=== PATIENT | male | born 1975 | race Caucasian/White ===

== ENCOUNTER 2022-09-21 08:10 | Outpatient (RCR) | payer OTHER, SELFPAY | END 2023-01-19 23:59 | disposition home or self-care (01) | PROVIDERS: PCP Orthopaedic Surgery; Visit Provider Orthopaedic Surgery | DX: M17.12 Unilateral primary osteoarthritis, left knee (principal); Z96.652 Presence of left artificial knee joint; R26.2 Difficulty in walking, not elsewhere classified; M25.562 Pain in left knee; Z51.89 Encounter for other specified aftercare | CPT/HCPCS: 97110; 97116; 97161 ==

== ENCOUNTER 2022-10-05 09:21 | Day surgery (SDC) | payer OTHER, SELFPAY ==
[2022-10-05] VITALS (20 sets, daily range): BP systolic 100–142; BP diastolic 54–96; PULSE 64–84; RESP 12–18; TEMP 35.9–36.6; O2SAT 94–100; BMI 50.2
[2022-10-05] MEDS: SODIUM CHLORIDE 0.9 % (FLUSH) 10 ML SYRINGE IVF (09:45)
[2022-10-05] MEDS: OXYCODONE (CR) 10 MG TAB.ER.12H PO (09:45)
[2022-10-05] MEDS: ACETAMINOPHEN 500 MG TABLET 1000 MG PO ×3 (09:45→22:20)
[2022-10-05] MEDS: LACTATED RINGERS 1000 ML 1,000 ML 100 ML IV ×2 (09:45→11:58)
[2022-10-05] MEDS: CELECOXIB 200 MG CAPSULE PO (09:45)
[2022-10-05] MEDS: fentaNYL 100 MCG/2 ML inj IVP (10:12)
[2022-10-05] MEDS: MIDAZOLAM HCL 1 MG/ML inj IVP (10:12)
--- NOTE | 2022-10-05 10:24 | SUR.PREOP ---
TIME?OUT:?1010 PT/RN/ATHLETE MANAGER?VERIFICATION?OF?SURGICAL?SITE,?PROCEDURE,?AND?CONSENT OBTAINED?PRIOR?TO?INVASIVE?PROCEDURE.
[2022-10-05] MEDS: CEFAZOLIN 2 GM INJ IVP (10:40)
[2022-10-05] MEDS: TRANEXAMIC ACID 100 MG/ML INJ 1000 MG IV (10:45)
--- NOTE | 2022-10-05 13:14 | CRLHL7_ITS ---
For Patients: As a result of the Cures Act, medical imaging exams and procedure reports are released immediately into your electronic medical record. You may view this report before your referring provider. If you have questions, please contact your health care provider. INDICATION: Postop TECHNIQUE: Two views left knee FINDINGS: Left knee total arthroplasty in satisfactory position with postoperative soft tissue edema and gas. Dictated by Val Gonzalez MD @ 10/05/2022 8:20:08 PM (Electronically Signed)
--- NOTE | 2022-10-05 13:18 | P.ORPRC_ITS ---
Procedure Note Date of procedure: 10/05/22 Procedure: PREOPERATIVE DIAGNOSIS: Left knee osteoarthritis POSTOPERATIVE DIAGNOSIS: Left knee osteoarthritis NAME OF OPERATION: Left total knee arthroplasty SURGEON: Laci Peterson MD TILTING SAW OPERATOR: KIM Gupta ANESTHESIA: Spinal ESTIMATED BLOOD LOSS: 0 mL COMPLICATIONS: None SPECIMENS: None DRAINS: None PREOPERATIVE ANTIBIOTICS: Ancef 3 grams, antibiotic impregnated cement IMPLANTS: 1. J&J Attune # 7 posterior stabilized CRS femur, with a 14 mm x 50 mm cemented stem 2. #6 fixed-bearing CRS tibia, with a 14 mm x 50 mm cemented stem 3. # 7 posterior stabilized, 8 mm fixed-bearing polyethylene 4. 38 patella INDICATIONS: The patient is a 47-year-old with a longstanding history of severe, unrelenting left knee pain secondary to end-stage (grade IV) left knee osteoarthritis. Despite appropriate nonoperative management, including activity modification, anti-inflammatories, [id number] pain medication, bracing, physical therapy, and injections they continue to have pain and disability. Operative intervention was offered. The risks, benefits and expected outcomes were discussed in detail. These included but were not limited to: Infection, bleeding, injury to blood vessel or nerve, venous thromboembolism. All questions were answered to their satisfaction. Use of an assistant professor of spanish was necessary throughout the case for patient positioning and safety, soft tissue retraction, and closure. A modifier 22 should be added the case. Patient's weight of 154 kg with a BMI of 50 kg/meter squared made exposure quite difficult. Additionally, because of his BMI, revision components with stems were required. These factors more than double the time typically required to complete the case. PROCEDURE: Spinal anesthesia was administered. The patient was placed supine on the operating table. The assistant professor of spanish made sure the patient was positioned appropriately. The lower extremity was prepped and draped in the usual sterile fashion. The limb was exsanguinated with the Keon bandage. The pneumatic tourniquet was inflated to 300 mmHg. A standard anterior incision was made with the knee in flexion. Subcutaneous dissection was sharply taken through fascial layer #1. Full-thickness medial and lateral flaps were elevated. The assistant professor of spanish retracted the soft tissues and protected them throughout the case. A standard medial parapatellar approach was made. The patella was everted. The infrapatellar fat pad was preserved. The menisci and cruciate ligaments were sharply d?brided. Marginal osteophytes were d?brided with the rongeur. The drill was used to penetrate the femoral canal. The canal was aspirated and irrigated with pulse lavage. The intramedullary femoral guide was placed for a 5-degree valgus cut, removing 10 mm off the distal femur. The saw was used to make the cut. Whitesides line and the trans epicondylar axis were marked. The femoral sizing guide was pinned onto the distal femur. Three degrees of external rotation nicely parallels the transepicondylar axis. Pins were placed for posterior referencing. The four-in-one cutting guide was pinned onto the distal femur. The anterior, posterior, and chamfer cuts were made. The assistant professor of spanish protected the collateral ligaments. The trial was placed. The box cuts were made. The femoral drill guide was placed and the drills were used x2. The stemmed, boxed trial was placed and was an excellent fit. Attention was then turned to the proximal tibia. The extramedullary tibial guide was placed for a neutral varus/valgus cut with 5 degrees of posterior slope, removing 1 mm based off the medial tibial surface. The assistant professor of spanish protected the collateral ligaments and the neurovascular bundle. The saw was used to make the cut. Trial components were placed. The knee was nicely balanced in both flexion and extension. The trial components were removed. The tray was placed in appropriate rotation, parallel to our tibial cutting pins. It was pinned by the assistant professor of spanish and the drill x2 and the punch were used. The tray was removed. The punch was used again. The stemmed trial tray was placed and was an excellent fit. Attention was then turned to the patella. [place] patellar thickness was 24 mm. The lobster claw resection guide was used with the 9.5 mm zak. The saw was used to make the cut. Drill holes were made by the assistant professor of spanish. The trial was placed and was an excellent fit. Cancellous surfaces were irrigated with pulse lavage and thoroughly dried by the assistant professor of spanish. We cemented the tibial component, then the femoral component. A trial spacer was placed. The knee was brought into full extension. We then cemented the patellar component. Excessive cement was removed. The cement was allowed to harden. Then we impacted the 8 mm polyethylene onto the tibial tray. The knee was taken through a range of motion and was found to be nicely balanced in both flexion and extension. The patella tracks centrally. The assistant professor of spanish did a three minute dilute Betadine solution soak. The assistant professor of spanish irrigated the wound with 3 liters of normal saline via pulse lavage. The assistant professor of spanish reapproximated the extensor mechanism with #1 Vicryl in an interrupted hconox-jw-obzob fashion. The assistant professor of spanish then ran the extensor mechanism with a #1 PDO Stratafix. The assistant professor of spanish closed the subcutaneous tissues with a 3-0 Stratafix and the skin with a running 3-0 Stratafix in a subcuticular fashion. Glue was used to seal the skin. The assistant professor of spanish placed a dry dressing, JULIA stocking, and Polar Care. Sponge and needle counts were correct x2. The patient tolerated the procedure well. There were no apparent complications. They were carefully transferred to the hospital bed and taken to the postanesthesia care unit in satisfactory condition. PLAN: The patient will be mobilized with physical therapy. Aspirin will be used for DVT prophylaxis. They will be discharged to home once medically appropriate.
[2022-10-05] MEDS: HYDROmorphone 0.5 mg/0.5 ml inj IVP ×3 (13:48→17:05)
--- NOTE | 2022-10-05 13:57 | W.ANESCHARGE ---
Anesthesia Charges Start Date/Time Anesthesia Start Date: 10/05/22 Anesthesia Start Time: 10:35 Stop Date/Time Anesthesia Stop Date: 10/05/22 Anesthesia Stop Time: 13:32
[2022-10-05] MEDS: fentaNYL 100 MCG/2 ML inj 50 MCG IVP ×2 (13:58→14:05)
--- NOTE | 2022-10-05 15:00 | P.IMCN_ITS ---
Date of Consult Patient: Other ([facility]) Consult date: 10/05/22 Requesting Physician: Orthopedics ([facility]) Primary Care Provider: Mohit Castaneda MD Consult Narrative Reason for consult: Hypertension Narrative: Eulalio Solomon is a 47 year old male who underwent an elective left total knee arthroplasty today by Dr. Peterson. Postoperatively he has been having a lot of pain and, according to the floor nurse, the PACU nurses thought that maybe the block had already worn off because he was having lot of trouble with pain immediately postoperatively. He has gotten several doses of Dilaudid and oxycodone already. While I was in there he was starting to become more comfortable and rating the pain at around a 6/10; he had just gotten his 2nd dose of Dilaudid about 10 minutes before I walked in. Review of Systems Status of ROS: Reports: 6 or more systems reviewed and unremarkable except as noted in History and below [facility] Medical History (Updated 10/05/22 @ 19:12 by Marquita Smith MD) Elevated liver enzymes ?R74.8 - Abnormal levels of other serum enzymes (ICD-10) Obesity ?E66.9 - Obesity, unspecified (ICD-10) Alcohol dependence with alcohol-induced disorder ?F10.29 - Alcohol dependence with unspecified alcohol-induced disorder (ICD- 10) Hypertension ?I10 - Essential (primary) hypertension (ICD-10) Prediabetes ?R73.03 - Prediabetes (ICD-10) Surgical History (Updated 10/05/22 @ 19:12 by Marquita Smith MD) S/P total knee arthroplasty ?Z96.659 - Presence of unspecified artificial knee joint (ICD-10) S/P arthroscopy of left shoulder (~1991) ?Z98.890 - Other specified postprocedural states (ICD-10) History of appendectomy (~1981) ?Z90.49 - Acquired absence of other specified parts of digestive tract (ICD- 10) History of bilateral carpal tunnel release (~09/14/21) ?Z98.890 - Other specified postprocedural states (ICD-10) S/P hernia repair (~1992) ?Z98.890 - Other specified postprocedural states (ICD-10) ?Z87.19 - Personal history of other diseases of the digestive system (ICD-10) S/P knee surgery (~1990) ?Z98.890 - Other specified postprocedural states (ICD-10) Family History (Updated 10/05/22 @ 14:59 by Marquita Smith MD) Father Sleep apnea Diabetes Obesity Mother Sleep apnea Obesity Maternal Grandfather Stroke Coronary artery disease Diabetes Maternal Grandmother Diabetes High cholesterol Obesity Paternal Grandfather No problems noted. 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 Quit smoking 3 years ago. Smoked on/off for 20 years, just under a pack per day. Denies any other tobacco or vaping. Quit all alcohol 2020. Denies recreational drug use. Has used marijuana in distant past, last time 2009. Highest level of school completed/degree received: Bachelor's degree Smoking Status: Former smoker What tobacco products do you use: cigarettes Smoking packs per day: 1 Smoking cigarettes per day: 20.0 Years smoked: 15 Smoking pack-years: 15.00 Smoking quit date/years: <= 15 years ago Do you use any of these nicotine containing products: None Second hand tobacco smoke exposure: No How often do you have a drink containing alcohol: never How often do you have six or more drinks on one occasion: Never AUDIT-C Alcohol total score: 0 Non-prescribed substance use: denies use Caffeine: Yes (coffee, 5-6 cups/day) service: No Meds Home Medications and Allergies Home Medications Medication Instructions Recorded Confirmed Type acetaminophen 500 mg tablet 500 mg PO Q6H PRN 08/09/22 10/05/22 History (Tylenol Extra Strength) ibuprofen 200 mg tablet 800 mg PO Q8H PRN 08/09/22 10/05/22 History losartan 50 mg-hydrochlorothiazide 1 tab PO DAILY 08/09/22 10/05/22 History 12.5 mg tablet metformin 500 mg tablet,extended 500 mg PO DAILY 08/09/22 10/05/22 History release 24 hr phentermine 37.5 mg capsule 37.5 mg PO QAM 08/09/22 10/05/22 History Allergies Allergy/AdvReac Type Severity Reaction Status Date / Time No Known Drug Allergies Allergy Verified 10/05/22 10:09 Exam Narrative: Exam Narrative: General: No acute distress. Awake alert oriented x3. Obese. HEENT: Normocephalic atraumatic, pupils equally round and reactive to light and accommodation. Oropharynx clear. Mucous membranes are moist. No cervical lymphadenopathy, thyromegaly or carotid bruits. No JVD. Cardiovascular: Regular rate and rhythm. No murmurs, gallops, or rubs. Chest: No increased work of breathing. Clear to auscultation bilaterally. No crackles or wheezes. Abdomen: Bowel sounds present. Soft, nondistended, nontender. No hepatosplenomegaly or masses. Extremities: Left knee bandage is clean, dry, and intact. No edema, no cyanosis or clubbing. Skin: No jaundice, no pallor, no rashes. Const: Vital Signs, click to edit/add: Vital Signs - 24 hr 10/05/22 10:06 10/05/22 10:12 10/05/22 10:15 Temperature 97.7 F Pulse Rate 84 79 84 Respiratory Rate 16 16 16 Blood Pressure 135/87 119/70 115/86 Pulse Oximetry 96 100 99 Oxygen Delivery Me thod Room Air Nasal Cannula Nasal Cannula Oxygen Flow Rate 3 3 10/05/22 10:20 10/05/22 10:30 10/05/22 13:34 Temperature 96.8 F L Pulse Rate 80 80 82 Respiratory Rate 16 16 17 Blood Pressure 123/70 117/70 102/54 L Pulse Oximetry 98 99 96 Oxygen Delivery Me thod Nasal Cannula Nasal Cannula Room Air Oxygen Flow Rate 3 3 10/05/22 13:40 10/05/22 13:45 10/05/22 13:50 Temperature Pulse Rate 65 72 64 Respiratory Rate 16 16 16 Blood Pressure 105/74 113/80 106/68 Pulse Oximetry 99 99 99 Oxygen Delivery Me thod Room Air Oxygen Flow Rate 10/05/22 13:55 10/05/22 14:00 10/05/22 14:05 Temperature Pulse Rate 70 74 71 Respiratory Rate 16 14 12 Blood Pressure 106/72 104/74 112/76 Pulse Oximetry 99 97 97 Oxygen Delivery Me thod Room Air Oxygen Flow Rate 10/05/22 14:10 10/05/22 14:15 10/05/22 14:20 Temperature 96.9 F L Pulse Rate 74 71 68 Respiratory Rate 16 12 12 Blood Pressure 100/56 L 111/83 103/71 Pulse Oximetry 95 94 94 Oxygen Delivery Me thod Room Air Oxygen Flow Rate 3 Assessment and Plan Assessment and plan (1) S/P total knee arthroplasty: Problem comment: - 10/05/22 left, Dr. Peterson - routine postop cares per Ortho - pain is now coming under control, continue current regimen Status: Acute (2) Osteoarthritis of left knee: Status: Chronic (3) Osteoarthritis of right knee: Status: Chronic (4) Hypertension: Problem comment: Hold losartan hydrochlorothiazide tomorrow morning, can give later in the mor [place]ia if blood pressures are elevated, restarted on discharge Status: Chronic (5) Prediabetes: Problem comment: Diabetic diet and continue metformin Status: Chronic (6) Obesity: Status: Chronic Plan VTE prophylaxis with twice a day baby aspirin, Brant's, and SCDs.
[2022-10-05] MEDS: OXYCODONE 5 MG TABLET PO ×3 (15:06→23:35)
--- NOTE | 2022-10-05 19:21 | PC.NURSE ---
Nursing Care Hours [id number] Pt arrived from PACU with pain 5/10 and increasing. Cryocuff on, bandage CDI, bilat pedal pulses present. VSS. Pain meds given per eMAR, pt continued to struggle with getting pain under 5/10. Attempt to transfer to chair for different position, pt did not tolerate. [place] lightheaded when standing and pain reported 10/10. Hospitalist made aware. Second dose of IV pain med allowed enough comfort for pt to order and eat dinner. Void pending. Pt worked on IS. Moved JULIA stockings up from G to H d/t socks rolling and pinching. Post op VS followed per hospital policy.
[2022-10-05] MEDS: SENNOSIDES 1 TAB TABLET 2 TAB PO (20:23)
[2022-10-05] MEDS: ASPIRIN 81 MG TABLET EC PO (20:24)
--- NOTE | 2022-10-05 23:29 | PC.NURSE ---
[id number]: A&O, pleasant and cooperative. VSS w/ sats >90% on RA. A1 w/ walker and gait belt. Voiding appropriately. rating pain /10, PRN oxycodone given w/ stated relief. Dressing to knee c/d/i. CMS intact. Cryocuff to site. tolerating regular diet.
[2022-10-06 03:00] VITALS: BP 144/90; PULSE 83; RESP 18; TEMP 36.4; O2SAT 97
[2022-10-06] MEDS: ACETAMINOPHEN 500 MG TABLET 1000 MG PO ×2 (03:40→10:39)
--- NOTE | 2022-10-06 07:05 | PC.NURSE ---
Shift note: Pt is doing well. Ambulate with A1, walker and GB. Alert and oriented. Pt tolerated regular diet very well. Pain level has been rated between 5 and 7 and managed with PRN oxycodone and Tylenol. Dressing appears clean and dry. Vitally sable.
[2022-10-06 07:20] LABS: Basophils Absolute Auto 0.01 K/uL (0.00-0.30); Basophils Percent Auto 0.1 % (0.0-3.0); Hematocrit 37.6 % (37.0-53.0); Hemoglobin* 12.5 gm/dL (13.5-17.5); Immature Granulocytes Abs Auto 0.01 K/uL (0.00-0.30); Immature Granulocytes Pct Auto 0.1 %; Mean Corpuscular HGB Conc 33 gm/dL (32-36); Mean Corpuscular Hemoglobin 28 pg (26-34); Mean Corpuscular Volume 85 fL (80-100); Monocytes Percent Auto 7.5 % (0.0-11.0); Neutrophils Percent Auto 81.3 % (42.0-72.0); Platelet Count* 192 K/uL (140-440); RDW Coefficient of Variation % 12.7 % (11.5-15.5); Red Blood Count 4.43 m/uL (4.30-5.90); White Blood Count* 9.57 K/uL (4.50-11.00)
[2022-10-06 07:26] LABS: Potassium* 4.1 mmol/L (3.6-5.1); Sodium* 137 mmol/L (135-149)
[2022-10-06 07:28] LABS: Slide Review Reflex No
[2022-10-06 07:29] LABS: Creatinine* 0.8 mg/dL (0.5-1.5); Est. Creatinine Clearance* 112.92; Estimated Glomerular Filt Rate 109 ml/min
[2022-10-06 07:30] LABS: Blood Urea Nitrogen* 17 mg/dL (5-24)
[2022-10-06 07:40] VITALS: BP 128/86; PULSE 81; RESP 18; TEMP 36.6; O2SAT 100
[2022-10-06 07:45] VITALS: PULSE 81; PULSE 83; RESP 18; O2SAT 100
[2022-10-06] MEDS: OXYCODONE 5 MG TABLET PO ×2 (07:45→10:38)
[2022-10-06 07:50] LABS: INR 1.05 (0.91-1.10); Prothrombin Time 14.4 Seconds
[2022-10-06] MEDS: SENNOSIDES 1 TAB TABLET 2 TAB PO (08:34)
[2022-10-06] MEDS: METFORMIN ER 500 MG PO (08:35)
[2022-10-06] MEDS: ASPIRIN 81 MG TABLET EC PO (08:35)
--- NOTE | 2022-10-06 09:35 | PM.ORPN ---
Subjective Subjective Time Seen by Provider: 07:45 Date Seen: 10/06/22 Principal diagnosis: Status post left knee replacement 10/05/2022 Interval history: Eulalio is comfortable in the recliner currently. He states after surgery yesterday he had a period of quite significant pain that calm down with Dilaudid and oxycodone. He plans to discharge to home today. His daughter is with him in the room this morning. Ortho Exam Narrative Exam Narrative: Alert and oriented x3. Patient is in no acute distress. Converses without labored breathing. Hearing is grossly intact. Ambulates with a walker. Examination of the left lower extremity shows the dressing is intact. No erythema or warmth or sign of infection. Mild edema is present. Due to the large knee, effusion is not palpable. Bilateral calves are soft and nontender. CMS is intact left lower extremity. Const Vital Signs, click to edit/add: Vital Signs - 24 hr 10/05/22 10:06 10/05/22 10:12 10/05/22 10:15 Temperature 97.7 F Pulse Rate 84 79 84 Pulse Rate [Left Dorsalis Pedis] Pulse Rate [Left Pulse Oximeter] Respiratory Rate 16 16 16 Blood Pressure 135/87 119/70 115/86 Blood Pressure [Right Arm] Pulse Oximetry 96 100 99 Oxygen Delivery Method Room Air Nasal Cannula Nasal Cannula Oxygen Flow Rate 3 3 10/05/22 10:20 10/05/22 10:30 10/05/22 13:34 Temperature 96.8 F L Pulse Rate 80 80 82 Pulse Rate [Left Dorsalis Pedis] Pulse Rate [Left Pulse Oximeter] Respiratory Rate 16 16 17 Blood Pressure 123/70 117/70 102/54 L Blood Pressure [Right Arm] Pulse Oximetry 98 99 96 Oxygen Delivery Method Nasal Cannula Nasal Cannula Room Air Oxygen Flow Rate 3 3 10/05/22 13:40 10/05/22 13:45 10/05/22 13:45 Temperature Pulse Rate 65 72 82 Pulse Rate [Left Dorsalis Pedis] Pulse Rate [Left Pulse Oximeter] Respiratory Rate 16 16 15 Blood Pressure 105/74 113/80 Blood Pressure [Right Arm] 128/94 H Pulse Oximetry 99 99 Oxygen Delivery Method Room Air Oxygen Flow Rate 10/05/22 13:45 10/05/22 13:50 10/05/22 13:55 Temperature 96.6 F L Pulse Rate 64 70 Pulse Rate [Left Dorsalis Pedis] Pulse Rate [Left Pulse Oximeter] 66 Respiratory Rate 15 16 16 Blood Pressure 106/68 106/72 Blood Pressure [Right Arm] 126/92 H Pulse Oximetry 94 99 99 Oxygen Delivery Method Room Air Room Air Oxygen Flow Rate 10/05/22 14:00 10/05/22 14:00 10/05/22 14:05 Temperature Pulse Rate 74 71 Pulse Rate [Left Dorsalis Pedis] Pulse Rate [Left Pulse Oximeter] 65 Respiratory Rate 14 15 12 Blood Pressure 104/74 112/76 Blood Pressure [Right Arm] 138/89 Pulse Oximetry 97 94 97 Oxygen Delivery Method Room Air Room Air Oxygen Flow Rate 10/05/22 14:10 10/05/22 14:15 10/05/22 14:15 Temperature Pulse Rate 74 71 Pulse Rate [Left Dorsalis Pedis] Pulse Rate [Left Pulse Oximeter] 65 Respiratory Rate 16 12 16 Blood Pressure 100/56 L 111/83 Blood Pressure [Right Arm] 138/89 Pulse Oximetry 95 94 94 Oxygen Delivery Method Room Air Oxygen Flow Rate 10/05/22 14:20 10/05/22 14:30 10/05/22 15:00 Temperature 96.9 F L Pulse Rate 68 Pulse Rate [Left Dorsalis Pedis] Pulse Rate [Left Pulse Oximeter] 72 Respiratory Rate 12 16 Blood Pressure 103/71 Blood Pressure [Right Arm] 128/96 H Pulse Oximetry 94 96 96 Oxygen Delivery Method Room Air Room Air Oxygen Flow Rate 3 10/05/22 19:00 10/05/22 19:26 10/05/22 23:00 Temperature 97.4 F L Pulse Rate Pulse Rate [Left Dorsalis Pedis] Pulse Rate [Left Pulse Oximeter] 72 Respiratory Rate 18 Blood Pressure Blood Pressure [Right Arm] 142/81 H Pulse Oximetry 98 98 97 Oxygen Delivery Method Room Air Oxygen Flow Rate 10/05/22 23:00 10/06/22 03:00 10/06/22 03:00 Temperature 97.8 F 97.6 F Pulse Rate Pulse Rate [Left Dorsalis Pedis] 81 83 Pulse Rate [Left Pulse Oximeter] Respiratory Rate 18 18 Blood Pressure Blood Pressure [Right Arm] 136/79 144/90 H Pulse Oximetry 97 97 97 Oxygen Delivery Method Room Air Room Air Oxygen Flow Rate 10/06/22 07:40 10/06/22 07:45 10/06/22 07:45 Temperature 97.8 F Pulse Rate Pulse Rate [Left Dorsalis Pedis] 83 Pulse Rate [Left Pulse Oximeter] 81 81 Respiratory Rate 18 18 Blood Pressure Blood Pressure [Right Arm] 128/86 Pulse Oximetry 100 100 Oxygen Delivery Method Room Air Oxygen Flow Rate Assessment and Plan Assessment and plan (1) S/P total knee arthroplasty: Problem details: - 10/05/22 left, Dr. Peterson - routine postop cares per Ortho - pain is now coming under control, continue current regimen Status: Acute Assessment and Plan: Plan for discharge is today to home if they meet discharge criteria. DVT prophylaxis includes aspirin 81 mg twice daily x1 month, Brant stockings x1 month may remove for 1 hr per day, frequent ambulation Remove dressing in 1 week. Observe wound and phone Orthopedics with any questions or concerns Return to clinic in 1 week for a wound check Return to clinic in 6 weeks with surgeon Minimize narcotic use. Wean off and discontinue soon as possible. Activities as tolerated. No strenuous activity. Outpatient physical therapy as scheduled. Ice and elevate the operative extremity. No restriction on ice. (2) Osteoarthritis of left knee: Status: Chronic (3) Osteoarthritis of right knee: Status: Chronic (4) Hypertension: Problem details: Hold losartan hydrochlorothiazide tomorrow morning, can give later in the morning if blood pressures are elevated, restarted on discharge Status: Chronic (5) Prediabetes: Problem details: Diabetic diet and continue metformin Status: Chronic (6) Obesity: Status: Chronic
--- NOTE | 2022-10-06 09:47 | PC.SOCIAL ---
Discharge Plan: Met with patient, Eulalio and daughter. Daughter is home from college and planning to care for dad for two weeks. Hi other children are available to help if needed. No other questions or concerns. Social work to follow as needed.
--- NOTE | 2022-10-06 11:53 | PC.NURSE ---
discharge. pt has been very pleasant, rehan 5-10/07 he is getting po pain meds. he is drinking, voiding and eating. dressing is C/D/I and cryo cuff to the knee. IS to 2500. he is up with 1 assist walker and GB. went over discharge packet with pt and daughter. went over medications, appointments, education and instructions. pt went over and signed personal belonging sheet. he got a w/c ride out. SL was d/c intact.
--- NOTE | 2022-10-14 09:42 | P.NB_ITS ---
Nerve Block Nerve Block Time Seen by Provider: 10:10 Date Seen: 10/05/22 Type of block requested by surgeon for post-operative analgesia: adductor canal Side: left Time out performed: Yes Verification of patient name: Yes Verification of date of : Yes Site marking: site marked Name of person performing procedure: diana Continuous monitoring Was continuous monitoring of O2 sat, B/P, commercial reporter, recorded every 15 minutes?: Yes Procedure Checklist: needles Ultrasound guided. Images saved: Yes Medications given in 5ml increments after negative aspiration: Ropivicaine %: 0.5 mL: 20 Needle gauge: 20 Decadron (mg): 10 Precedex (mcg): 25 Patient tolerated procedure well: Yes Block Charges Block Charge (with Pro Fee): Femoral Nerve Use of Ultrasound Machine for Block: Yes- US Guidance/pain block
--- NOTE | 2022-10-14 09:44 | W.PM.NB ---
Nerve Block Nerve Block Time Seen by Provider: 10:10 Date Seen: 10/05/22 Type of block requested by surgeon for post-operative analgesia: geniculars Side: left Time out performed: Yes Verification of patient name: Yes Verification of date of : Yes Site marking: site marked Name of person performing procedure: diana Continuous monitoring Was continuous monitoring of O2 sat, B/P, clinical research monitor, recorded every 15 minutes?: Yes Procedure Checklist: sterile prep and needles Ultrasound guided. Images saved: No Medications given in 5ml increments after negative aspiration: Ropivicaine %: 0.5 mL: 12 Needle gauge: 25 Patient tolerated procedure well: Yes Block Charges Block Charge (with Pro Fee): Genicular Nerve Block Use of Ultrasound Machine for Block: No
== END 2022-10-06 11:00 | disposition home or self-care (01) ==
LOC: OR 09:23 → MEDSURG 09:25
PROVIDERS: PCP Family Medicine; Visit Provider Orthopaedic Surgery
PROC: (CPT 27447; principal; 2022-10-05 11:15)
DX: M17.0 Bilateral primary osteoarthritis of knee (principal); G89.18 Other acute postprocedural pain; I10 Essential (primary) hypertension; E66.9 Obesity, unspecified; Z68.43 Body mass index [BMI] 50.0-59.9, adult; R73.03 Prediabetes
CPT/HCPCS: 27447; 1402; 36415; 64447; 64454; 73560; 76942; 82565; 84132; 84295; 84520; 85025; 85610; 97116; 97161; 97165; 97530; 97535; A9270; C1776; J0690; J1100; J1170; J2250; J2405; J2704; J2795; J3010; J7120

== ENCOUNTER 2022-10-25 08:32 | Outpatient (CLI) | payer OTHER, SELFPAY ==
--- NOTE | 2022-10-25 11:15 | US_ITS ---
Patient: ANN-MARIE LEON Facility:?[facility] Patient ID:?[id number] Site Patient ID:?[id number]. Site :?[id number] Study:?US-Extremity Left Dr. Hartley to read. MSK-10/25/2022 5:04:09 PM Ordering Physician:MADDIE LOVE Final Report: Indication: s/p left knee surgery and fall. eval quadriceps tendon Technique: Real-time grayscale imaging of the left knee performed. Comparison: Radiographs 10/05/2022 Findings: Postoperative changes of total knee arthroplasty are present. The patellar tendon is intact. A small joint effusion is noted within the suprapatellar recess. The quadriceps tendon is also intact. There is a large fluid collection within the prepatellar soft tissues containing areas of reticular echotexture compatible with blood products. This fluid collection is located just beneath the skin and superficial to the patella and quadriceps tendon. The collection measures approximately 17.8 cm in craniocaudad dimension and 2.1 x 2.3 cm in transverse dimensions. Impression: Subcutaneous prepatellar hematoma measuring 17.8 x 2.1 x 2.3 cm. Intact quadriceps tendon and patellar tendon. Dictated by Fredrick Hartley MD @ 10/26/2022 7:14:27 AM Signed by:?Fredrick Hartley MD @10/26/2022 7:14:27 AM (Electronic Signature)
== END 2022-10-25 08:33 | disposition home or self-care (01) ==
LOC: US 10-26 08:32
PROVIDERS: PCP Family Medicine; Visit Provider Physician Assistant
DX: Z96.652 Presence of left artificial knee joint (principal); M25.462 Effusion, left knee; S80.02XA Contusion of left knee, initial encounter
CPT/HCPCS: 76882

== ENCOUNTER 2023-01-25 05:53 | Day surgery (SDC) | payer OTHER, SELFPAY ==
[2023-01-25] VITALS (26 sets, daily range): BP systolic 86–143; BP diastolic 57–109; PULSE 54–112; RESP 12–20; TEMP 35.8–36.7; O2SAT 92–100; BMI 50.6
[2023-01-25] MEDS: ACETAMINOPHEN 500 MG TABLET 1000 MG PO ×3 (06:27→17:35)
[2023-01-25] MEDS: OXYCODONE (CR) 10 MG TAB.ER.12H PO (06:27)
[2023-01-25] MEDS: CELECOXIB 200 MG CAPSULE PO (06:27)
[2023-01-25] MEDS: LACTATED RINGERS 1000 ML 1,000 ML 100 ML IV (06:40)
[2023-01-25] MEDS: SODIUM CHLORIDE 0.9 % (FLUSH) 10 ML SYRINGE IVF (06:40)
[2023-01-25] MEDS: fentaNYL 100 MCG/2 ML inj IVP (07:00)
[2023-01-25] MEDS: MIDAZOLAM HCL 1 MG/ML inj IVP (07:00)
--- NOTE | 2023-01-25 07:11 | SUR.PREOP ---
Anesthesia deferred blood glucose, patient does not test glucose levels at home, patient says he is not diabetic just takes Metformin.
--- NOTE | 2023-01-25 07:11 | SUR.PREOP ---
TIME?OUT: 0700? PT/RN/MDA?VERIFICATION?OF?SURGICAL?SITE,?PROCEDURE,?AND?CONSENT OBTAINED?PRIOR?TO?INVASIVE?PROCEDURE.
[2023-01-25] MEDS: CEFAZOLIN 1 GM inj 3 GM IVP (07:47)
--- NOTE | 2023-01-25 08:01 | P.NB_ITS ---
Nerve Block Nerve Block Time Seen by Provider: 07:05 Date Seen: 01/25/23 Type of block requested by surgeon for post-operative analgesia: geniculars Side: right Time out performed: Yes Verification of patient name: Yes Verification of date of : Yes Site marking: site marked Name of person performing procedure: Boy Continuous monitoring Was continuous monitoring of O2 sat, B/P, cardiac rehabilitation specialist, recorded every 15 minutes?: Yes Procedure Checklist: sterile prep, needles and gloves Medications given in 5ml increments after negative aspiration: Ropivicaine %: 0.5 mL: 9 Needle gauge: 25 Patient tolerated procedure well: Yes Block Charges Block Charge (with Pro Fee): Genicular Nerve Block Use of Ultrasound Machine for Block: No
--- NOTE | 2023-01-25 08:01 | W.PM.NB ---
Nerve Block Nerve Block Time Seen by Provider: 07:05 Date Seen: 01/25/23 Type of block requested by surgeon for post-operative analgesia: adductor canal Side: right Time out performed: Yes Verification of patient name: Yes Verification of date of : Yes Site marking: site marked Name of person performing procedure: Boy Continuous monitoring Was continuous monitoring of O2 sat, B/P, phototypesetting equipment monitor, recorded every 15 minutes?: Yes Procedure Checklist: sterile prep, needles and gloves Ultrasound guided. Images saved: Yes Medications given in 5ml increments after negative aspiration: Ropivicaine %: 0.5 mL: 20 Needle gauge: 20 Decadron (mg): 10 Precedex (mcg): 25 Patient tolerated procedure well: Yes Additional comments: Needle noted adjacent to nerve Block Charges Block Charge (with Pro Fee): Femoral Nerve Use of Ultrasound Machine for Block: Yes- US Guidance/pain block
--- NOTE | 2023-01-25 08:01 | W.ANESCHARGE ---
Anesthesia Charges Start Date/Time Anesthesia Start Date: 01/25/23 Stop Date/Time Anesthesia Stop Date: 01/25/23
--- NOTE | 2023-01-25 09:16 | CRLHL7_ITS ---
For Patients: As a result of the Cures Act, medical imaging exams and procedure reports are released immediately into your electronic medical record. You may view this report before your referring provider. If you have questions, please contact your health care provider. INDICATION: Postoperative knee replacement. TECHNIQUE: Two postoperative images of the right knee. FINDINGS: Right total knee arthroplasty. Patellar resurfacing. The components are adequately aligned and well seated. Air within the joint space and soft tissues related to the surgery. IMPRESSION: Postsurgical change from a right total knee arthroplasty. The components are adequately aligned and well seated. Dictated by Riaz Zabala MD @ 01/26/2023 11:17:19 AM (Electronically Signed)
--- NOTE | 2023-01-25 09:21 | PM.ORPRC ---
Procedure Note Date of procedure: 01/25/23 Procedure: PREOPERATIVE DIAGNOSIS: Right knee osteoarthritis POSTOPERATIVE DIAGNOSIS: Right knee osteoarthritis NAME OF OPERATION: Right total knee arthroplasty SURGEON: Laci Peterson MD COMMERCIAL MAKEUP ARTIST: Veronica Esteban PA-C ANESTHESIA: Spinal ESTIMATED BLOOD LOSS: 0 mL COMPLICATIONS: None SPECIMENS: None DRAINS: None PREOPERATIVE ANTIBIOTICS: Ancef 3 grams, antibiotic impregnated cement IMPLANTS: 1. J&J Attune revision CRS #6 posterior stabilized femur, with a 14 mm x 50 mm cemented stem 2. #6 revision CRS fixed-bearing tibia, with a 14 mm x 50 mm cemented stem 3. #6 posterior stabilized, 8 mm fixed-bearing constrained polyethylene 4. 38 patella INDICATIONS: The patient is a 48-year-old with a longstanding history of severe, unrelenting right knee pain secondary to end-stage (grade IV) right knee osteoarthritis. Despite appropriate nonoperative management, including activity modification, anti-inflammatories, [id number] pain medication, bracing, physical therapy, and injections they continue to have pain and disability. Operative intervention was offered. The risks, benefits and expected outcomes were discussed in detail. These included but were not limited to: Infection, bleeding, injury to blood vessel or nerve, venous thromboembolism. All questions were answered to their satisfaction. Use of an housekeeper and laundry assistant was necessary throughout the case for patient positioning and safety, soft tissue retraction, and closure. A modifier 22 should be added to this case. The patient's weight of 155 kg with a BMI of 50.6 kg/meter squared made exposure quite difficult. Additionally, because of these factors stemmed and constrained components were used to try and prevent early aseptic loosening. This added more than 50% of the time typically required to complete the case. PROCEDURE: Spinal anesthesia was administered. The patient was placed supine on the operating table. The housekeeper and laundry assistant made sure the patient was positioned appropriately. The lower extremity was prepped and draped in the usual sterile fashion. The limb was exsanguinated with the [place] bandage. The pneumatic tourniquet was inflated to 300 mmHg. A standard anterior incision was made with the knee in flexion. Subcutaneous dissection was sharply taken through fascial layer #1. Full-thickness medial and lateral flaps were elevated. The housekeeper and laundry assistant retracted the soft tissues and protected them throughout the case. A standard medial parapatellar approach was made. The patella was everted. The infrapatellar fat pad was preserved. The menisci and cruciate ligaments were sharply d?brided. Marginal osteophytes were d?brided with the rongeur. The drill was used to penetrate the femoral canal. The canal was aspirated and irrigated with pulse lavage. The intramedullary femoral guide was placed for a 5-degree valgus cut, removing 10 mm off the distal femur. The saw was used to make the cut. Whitesides line and the trans epicondylar axis were marked. The femoral sizing guide was pinned onto the distal femur. Three degrees of external rotation nicely parallels the transepicondylar axis. Pins were placed for posterior referencing. The four-in-one cutting guide was pinned onto the distal femur. The anterior, posterior, and chamfer cuts were made. The housekeeper and laundry assistant protected the collateral ligaments. The revision trial femoral component was pinned onto the distal femur. The box cuts were made. The drill x2 were used. The stemmed, box trial was placed and was an excellent fit. Attention was then turned to the proximal tibia. The extramedullary tibial guide was placed for a neutral varus/valgus cut with 5 degrees of posterior slope, removing 1 mm based off the medial tibial surface. The housekeeper and laundry assistant protected the collateral ligaments and the neurovascular bundle. The saw was used to make the cut. Trial components were placed. The knee was nicely balanced in both flexion and extension. The trial components were removed. The tray was placed in appropriate rotation, parallel to our tibial cutting pins. It was pinned by the housekeeper and laundry assistant and the drill x2 was used. The stemmed tibial trial was placed. The punch was used. The tray was removed. The punch was used again. Attention was then turned to the patella. [place] patellar thickness was 23 mm. The lobster claw resection guide was used with the 9.5 mm zak. The saw was used to make the cut. Drill holes were made by the housekeeper and laundry assistant. The trial was placed and was an excellent fit. Cancellous surfaces were irrigated with pulse lavage and thoroughly dried by the housekeeper and laundry assistant. We cemented the tibial component, then the femoral component. We impacted the 8 mm polyethylene onto the tibial tray. The knee was brought into full extension. We then cemented the patellar component. Excessive cement was removed. The cement was allowed to harden. The knee was taken through a range of motion and was found to be nicely balanced in both flexion and extension. The patella tracks centrally. The housekeeper and laundry assistant did a three minute dilute Betadine solution soak. The housekeeper and laundry assistant irrigated the wound with 3 liters of normal saline via pulse lavage. The housekeeper and laundry assistant reapproximated the extensor mechanism with #1 Vicryl in an interrupted ohckjz-au-mfugl fashion. The housekeeper and laundry assistant then ran the extensor mechanism with a #1 PDO Stratafix. The housekeeper and laundry assistant closed the subcutaneous tissues with a 3-0 Stratafix and the skin with a running 3-0 Stratafix in a subcuticular fashion. Glue was used to seal the skin. The housekeeper and laundry assistant placed a dry dressing, JULIA stocking, and Polar Care. Sponge and needle counts were correct x2. The patient tolerated the procedure well. There were no apparent complications. They were carefully transferred to the hospital bed and taken to the postanesthesia care unit in satisfactory condition. PLAN: The patient will be mobilized with physical therapy. Aspirin will be used for DVT prophylaxis. They will be discharged to home once medically appropriate.
--- NOTE | 2023-01-25 10:04 | W.ANESCHARGE ---
Anesthesia Charges Start Date/Time Anesthesia Start Date: 01/25/23 Anesthesia Start Time: 07:32 Stop Date/Time Anesthesia Stop Date: 01/25/23 Anesthesia Stop Time: 10:22
--- NOTE | 2023-01-25 10:27 | W.ANESCHARGE ---
Anesthesia Charges Start Date/Time Anesthesia Start Date: 01/25/23 Anesthesia Start Time: 07:32 Stop Date/Time Anesthesia Stop Date: 01/25/23 Anesthesia Stop Time: 10:22
[2023-01-25] MEDS: fentaNYL 100 MCG/2 ML inj 50 MCG IVP ×2 (10:44→11:09)
--- NOTE | 2023-01-25 11:12 | SUR.PHASEI ---
patient met discharge criteria per anesthsia
[2023-01-25] MEDS: HYDROmorphone 0.5 mg/0.5 ml inj IVP ×4 (11:58→15:56)
[2023-01-25] MEDS: OXYCODONE 5 MG TABLET PO ×6 (12:00→22:46)
[2023-01-25] MEDS: hydrOXYzine pamoate 25 MG CAPSULE PO ×2 (14:31→20:23)
--- NOTE | 2023-01-25 15:26 | REH.PT ---
Attempted Eval & treat X 2 this afternoon. Pt having 9/10 R Knee pain and poor quad control at both attempts. Will reattempt tomorrow am.
--- NOTE | 2023-01-25 15:49 | PC.SOCIAL ---
Discharge planning: Met with pt to discuss discharge planning after right knee replacement surgery. Pt states that he plans to go home with adult child that can help him, while also completing out-patient physical therapy. No other manager social responsibility follow-up is needed at this time.
--- NOTE | 2023-01-25 19:08 | PM.IMHP1 ---
Hospitalist- H&P: HPI History of Present Illness Time Seen by Provider: 19:00 Date Seen: 01/25/23 Chief complaint: Right total knee Narrative: Eulalio Solomon is a 48 year old male who underwent an elective right total knee arthroplasty today by Dr. Peterson. He said he had more pain coming out of surgery this time and that he remembers it going so well post op last time, but also notes that his pain is getting better. I reviewed my note from last time and he did have a lot of post op pain in the immediate post op period then, too. Review of Systems Status of ROS: Reports: 10 or more systems reviewed and unremarkable except as noted in History and below [facility] Medical History Alcohol dependence ?F10.20 - Alcohol dependence, uncomplicated (ICD-10) Fatty liver ?K76.0 - Fatty (change of) liver, not elsewhere classified (ICD-10) Elevated liver enzymes ?R74.8 - Abnormal levels of other serum enzymes (ICD-10) Obesity ?E66.9 - Obesity, unspecified (ICD-10) Alcohol dependence with alcohol-induced disorder ?F10.29 - Alcohol dependence with unspecified alcohol-induced disorder (ICD-10) Hypertension ?I10 - Essential (primary) hypertension (ICD-10) Prediabetes ?R73.03 - Prediabetes (ICD-10) Surgical History S/P total knee arthroplasty (10/05/22) ?Z96.659 - Presence of unspecified artificial knee joint (ICD-10) S/P arthroscopy of left shoulder (~1991) ?Z98.890 - Other specified postprocedural states (ICD-10) History of appendectomy (~1981) ?Z90.49 - Acquired absence of other specified parts of digestive tract (ICD-10) History of bilateral carpal tunnel release (~09/14/21) ?Z98.890 - Other specified postprocedural states (ICD-10) S/P hernia repair (~1992) ?Z98.890 - Other specified postprocedural states (ICD-10) ?Z87.19 - Personal history of other diseases of the digestive system (ICD-10) S/P knee surgery (~1990) ?Z98.890 - Other specified postprocedural states (ICD-10) Family History Father Sleep apnea Diabetes Obesity Mother Sleep apnea Obesity Maternal Grandfather Stroke Coronary artery disease Diabetes Maternal Grandmother Diabetes High cholesterol Obesity Paternal Grandfather No problems noted. 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 Quit smoking 3 years ago. Smoked on/off for 20 years, just under a pack per day. Denies any other tobacco or vaping. Quit all alcohol 2020. Denies recreational drug use. Has used marijuana in distant past, last time 2009. What is your current living situation?: I presently have a place to live Problems where you live: no known problems In the past 12 months, utilities in danger of being shut off: no In past 12 months, lack of transportation kept you from medical appts, meetings, work, or getting things needed for daily living: no In the past 12 mos, have been you worried that your food would run out before you had money to buy more?: never true In the past 12 mos, the food you bought just didn't last and you didn't have money to buy more?: never true Highest level of school completed/degree received: some college, no degree Smoking Status: Former smoker What tobacco products do you use: cigarettes Smoking packs per day: 0.5 Smoking cigarettes per day: 10.0 Years smoked: 15 Smoking pack-years: 7.50 Smoking quit date/years: <= 15 years ago Do you use any of these nicotine containing products: None Second hand tobacco smoke exposure: No How often do you have a drink containing alcohol: never How often do you have six or more drinks on one occasion: Never AUDIT-C Alcohol total score: 0 Non-prescribed substance use: denies use Caffeine: Yes How often does anyone, including family, friends and others, physically hurt you: never How often does anyone, including family, friends and others, insult or talk down to you: never How often does anyone, including family, friends and others, threaten you with harm: never How often does anyone, including family, friends and others, scream or curse at you: never service: No Meds Home Medications and Allergies Home Medications Medication Instructions Recorded Confirmed Type losartan 50 mg-hydrochlorothiazide 1 tab PO DAILY 08/09/22 01/25/23 History 12.5 mg tablet metformin 500 mg tablet,extended 500 mg PO DAILY 08/09/22 01/25/23 History release 24 hr phentermine 37.5 mg capsule 37.5 mg PO QAM 08/09/22 01/25/23 History topiramate 25 mg tablet (Topamax) 50 mg PO HS 01/25/23 01/25/23 History Allergies Allergy/AdvReac Type Severity Reaction Status Date / Time No Known Drug Allergies Allergy Verified 01/25/23 06:14 Exam Narrative: Exam Narrative: General: No acute distress. Awake alert oriented x3. Obese. HEENT: Normocephalic atraumatic, pupils pinpoint, equal. Oropharynx clear. Mucous membranes are moist. No JVD. Cardiovascular: Regular rate and rhythm. No murmurs, gallops, or rubs. Chest: No increased work of breathing. Clear to auscultation bilaterally. No crackles or wheezes. Abdomen: Bowel sounds present. Soft, nondistended, nontender. No hepatosplenomegaly or masses. Extremities: Right knee bandage is clean, dry, and intact. Well healed surgical scar on left knee. MELO wraps on both lower legs. No edema, no cyanosis or clubbing. Skin: No jaundice, no pallor, no rashes. Const: Vital Signs, click to edit/add: Vital Signs - 24 hr 01/25/23 06:46 01/25/23 07:01 01/25/23 07:15 Temperature 98.0 F Pulse Rate 73 77 76 Respiratory Rate 16 16 16 Blood Pressure 133/86 132/83 120/78 Pulse Oximetry 96 98 97 Oxygen Delivery Me thod Room Air Nasal Cannula Nasal Cannula Oxygen Flow Rate 2 2 01/25/23 10:19 01/25/23 10:25 01/25/23 10:30 Temperature 97.6 F 97.6 F 97.6 F Pulse Rate 84 67 69 Respiratory Rate 13 12 18 Blood Pressure 94/63 105/62 93/59 L Pulse Oximetry 98 97 97 Oxygen Delivery Me thod Room Air Room Air Room Air Oxygen Flow Rate 01/25/23 10:35 01/25/23 10:40 01/25/23 10:45 Temperature 97.6 F 97.6 F 97.6 F Pulse Rate 60 66 57 L Respiratory Rate 14 13 12 Blood Pressure 100/63 99/58 L 93/64 Pulse Oximetry 97 98 97 Oxygen Delivery Me thod Room Air Room Air Room Air Oxygen Flow Rate 01/25/23 10:50 01/25/23 10:55 01/25/23 11:00 Temperature 97.6 F 97.6 F 97.2 F L Pulse Rate 54 L 71 65 Respiratory Rate 12 16 16 Blood Pressure 86/70 L 92/58 L 89/57 L Pulse Oximetry 98 98 100 Oxygen Delivery Me thod Room Air Room Air Room Air Oxygen Flow Rate 01/25/23 11:14 Temperature 97.2 F L Pulse Rate 71 Respiratory Rate 16 Blood Pressure 110/68 Pulse Oximetry 97 Oxygen Delivery Me thod Room Air Oxygen Flow Rate
--- NOTE | 2023-01-25 20:31 | PC.NURSE ---
Nursing Care Hours: [id number] Pt arrived from PACU around 1130 with pain 6/10 that quickly escalated to 10/10. Unable to manage pain per eMAR orders. Surgeon notified and Vistaril added. Since Vistaril administration, pain started trending down but still reported 7/10. Pt unable to get up with PT. Did not tolerate having leg elevated on 2 pillows. Encouraged to order dinner and pt agreed to attempt to get up to void after dinner. SL d/t sufficient fluid intake. VSS. Bandage CDI, pedal pulses present.
--- NOTE | 2023-01-25 20:44 | PM.IMCN1 ---
Date of Consult Consult date: 01/25/23 Requesting Physician: Orthopedics Primary Care Provider: Mohit Castaneda MD Consult Narrative Reason for consult: Hypertension, pre diabetes Narrative: Eulalio Solomon is a 48 year old male who underwent an elective right total knee arthroplasty today by Dr. Peterson. He said he had more pain coming out of surgery this time and that he remembers it going so well post op last time, but also notes that his pain is getting better. I reviewed my note from last time and he did have a lot of post op pain in the immediate post op period then, too. Review of Systems Status of ROS: Reports: 10 or more systems reviewed and unremarkable except as noted in History and below [facility] Medical History (Updated 01/25/23 @ 20:49 by Marquita Smith MD) Hematoma ?T14.8XXA - Other injury of unspecified body region, initial encounter (ICD-10) Alcohol dependence ?F10.20 - Alcohol dependence, uncomplicated (ICD-10) Fatty liver ?K76.0 - Fatty (change of) liver, not elsewhere classified (ICD-10) Elevated liver enzymes ?R74.8 - Abnormal levels of other serum enzymes (ICD-10) Obesity ?E66.9 - Obesity, unspecified (ICD-10) Alcohol dependence with alcohol-induced disorder ?F10.29 - Alcohol dependence with unspecified alcohol-induced disorder (ICD-10) Hypertension ?I10 - Essential (primary) hypertension (ICD-10) Prediabetes ?R73.03 - Prediabetes (ICD-10) Surgical History (Updated 01/25/23 @ 20:48 by Marquita Smith MD) S/P total knee arthroplasty ?Z96.659 - Presence of unspecified artificial knee joint (ICD-10) S/P total knee arthroplasty (10/05/22) ?Z96.659 - Presence of unspecified artificial knee joint (ICD-10) S/P arthroscopy of left shoulder (~1991) ?Z98.890 - Other specified postprocedural states (ICD-10) History of appendectomy (~1981) ?Z90.49 - Acquired absence of other specified parts of digestive tract (ICD-10) History of bilateral carpal tunnel release (~09/14/21) ?Z98.890 - Other specified postprocedural states (ICD-10) S/P hernia repair (~1992) ?Z98.890 - Other specified postprocedural states (ICD-10) ?Z87.19 - Personal history of other diseases of the digestive system (ICD-10) S/P knee surgery (~1990) ?Z98.890 - Other specified postprocedural states (ICD-10) Family History Father Sleep apnea Diabetes Obesity Mother Sleep apnea Obesity Maternal Grandfather Stroke Coronary artery disease Diabetes Maternal Grandmother Diabetes High cholesterol Obesity Paternal Grandfather No problems noted. 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 Quit smoking 3 years ago. Smoked on/off for 20 years, just under a pack per day. Denies any other tobacco or vaping. Quit all alcohol 2020. Denies recreational drug use. Has used marijuana in distant past, last time 2009. What is your current living situation?: I presently have a place to live Problems where you live: no known problems In the past 12 months, utilities in danger of being shut off: no In past 12 months, lack of transportation kept you from medical appts, meetings, work, or getting things needed for daily living: no In the past 12 mos, have been you worried that your food would run out before you had money to buy more?: never true In the past 12 mos, the food you bought just didn't last and you didn't have money to buy more?: never true Highest level of school completed/degree received: some college, no degree Smoking Status: Former smoker What tobacco products do you use: cigarettes Smoking packs per day: 0.5 Smoking cigarettes per day: 10.0 Years smoked: 15 Smoking pack-years: 7.50 Smoking quit date/years: <= 15 years ago Do you use any of these nicotine containing products: None Second hand tobacco smoke exposure: No How often do you have a drink containing alcohol: never How often do you have six or more drinks on one occasion: Never AUDIT-C Alcohol total score: 0 Non-prescribed substance use: denies use Caffeine: Yes How often does anyone, including family, friends and others, physically hurt you: never How often does anyone, including family, friends and others, insult or talk down to you: never How often does anyone, including family, friends and others, threaten you with harm: never How often does anyone, including family, friends and others, scream or curse at you: never service: No Meds Home Medications and Allergies Home Medications Medication Instructions Recorded Confirmed Type losartan 50 mg-hydrochlorothiazide 1 tab PO DAILY 08/09/22 01/25/23 History 12.5 mg tablet metformin 500 mg tablet,extended 500 mg PO DAILY 08/09/22 01/25/23 History release 24 hr phentermine 37.5 mg capsule 37.5 mg PO QAM 08/09/22 01/25/23 History topiramate 25 mg tablet (Topamax) 50 mg PO HS 01/25/23 01/25/23 History Allergies Allergy/AdvReac Type Severity Reaction Status Date / Time No Known Drug Allergies Allergy Verified 01/25/23 06:14 Exam Narrative: Exam Narrative: General: No acute distress. Awake alert oriented x3. Obese. HEENT: Normocephalic atraumatic, pupils pinpoint, equal. Oropharynx clear. Mucous membranes are moist. No JVD. Cardiovascular: Regular rate and rhythm. No murmurs, gallops, or rubs. Chest: No increased work of breathing. Clear to auscultation bilaterally. No crackles or wheezes. Abdomen: Bowel sounds present. Soft, nondistended, nontender. No hepatosplenomegaly or masses. Extremities: Right knee bandage is clean, dry, and intact. Well healed surgical scar on left knee. MELO wraps on both lower legs. No edema, no cyanosis or clubbing. Skin: No jaundice, no pallor, no rashes. Const: Vital Signs, click to edit/add: Vital Signs - 24 hr 01/25/23 06:46 01/25/23 07:01 01/25/23 07:15 Temperature 98.0 F Pulse Rate 73 77 76 Pulse Rate [Left P ulse Oximeter] Respiratory Rate 16 16 16 Blood Pressure 133/86 132/83 120/78 Blood Pressure [Ri ght Arm] Pulse Oximetry 96 98 97 Oxygen Delivery Me thod Room Air Nasal Cannula Nasal Cannula Oxygen Flow Rate 2 2 01/25/23 10:19 01/25/23 10:25 01/25/23 10:30 Temperature 97.6 F 97.6 F 97.6 F Pulse Rate 84 67 69 Pulse Rate [Left P ulse Oximeter] Respiratory Rate 13 12 18 Blood Pressure 94/63 105/62 93/59 L Blood Pressure [Ri ght Arm] Pulse Oximetry 98 97 97 Oxygen Delivery Me thod Room Air Room Air Room Air Oxygen Flow Rate 01/25/23 10:35 01/25/23 10:40 01/25/23 10:45 Temperature 97.6 F 97.6 F 97.6 F Pulse Rate 60 66 57 L Pulse Rate [Left P ulse Oximeter] Respiratory Rate 14 13 12 Blood Pressure 100/63 99/58 L 93/64 Blood Pressure [Ri ght Arm] Pulse Oximetry 97 98 97 Oxygen Delivery Me thod Room Air Room Air Room Air Oxygen Flow Rate 01/25/23 10:50 01/25/23 10:55 01/25/23 11:00 Temperature 97.6 F 97.6 F 97.2 F L Pulse Rate 54 L 71 65 Pulse Rate [Left P ulse Oximeter] Respiratory Rate 12 16 16 Blood Pressure 86/70 L 92/58 L 89/57 L Blood Pressure [Ri ght Arm] Pulse Oximetry 98 98 100 Oxygen Delivery Me thod Room Air Room Air Room Air Oxygen Flow Rate 01/25/23 11:14 01/25/23 11:30 01/25/23 11:45 Temperature 97.2 F L 96.5 F L Pulse Rate 71 112 H Pulse Rate [Left P ulse Oximeter] 72 Respiratory Rate 16 12 Blood Pressure 110/68 Blood Pressure [Ri ght Arm] 111/80 117/70 Pulse Oximetry 97 97 Oxygen Delivery Me thod Room Air Room Air Room Air Oxygen Flow Rate 01/25/23 12:00 01/25/23 12:15 01/25/23 12:30 Temperature Pulse Rate Pulse Rate [Left P ulse Oximeter] 81 76 96 Respiratory Rate 12 Blood Pressure Blood Pressure [Ri ght Arm] 126/73 119/72 126/73 Pulse Oximetry 92 97 96 Oxygen Delivery Me thod Room Air Room Air Room Air Oxygen Flow Rate 01/25/23 13:00 01/25/23 13:30 01/25/23 14:30 Temperature 96.8 F L Pulse Rate Pulse Rate [Left P ulse Oximeter] 99 70 88 Respiratory Rate 12 14 14 Blood Pressure Blood Pressure [Ri ght Arm] 128/96 H 134/98 H 140/109 H Pulse Oximetry 99 99 96 Oxygen Delivery Me thod Room Air Room Air Room Air Oxygen Flow Rate 01/25/23 15:30 01/25/23 16:30 01/25/23 17:30 Temperature 96.5 F L Pulse Rate Pulse Rate [Left P ulse Oximeter] 81 92 87 Respiratory Rate 12 12 14 Blood Pressure Blood Pressure [Ri ght Arm] 130/82 128/79 135/79 Pulse Oximetry 98 96 94 Oxygen Delivery Me thod Room Air Room Air Room Air Oxygen Flow Rate Assessment and Plan Assessment and plan (1) S/P total knee arthroplasty: Problem comment: - 01/25/23 [address]Dr. Peterson - doing well. Continue routine postop cares. - VTE prophylaxis with twice a day low-dose aspirin Status: Acute (2) Osteoarthritis of right knee: Status: Chronic (3) Hypertension: Problem comment: Hold losartan hydrochlorothiazide tomorrow morning, can give later in the morning if blood pressures are elevated, restarted on discharge Status: Chronic (4) Prediabetes: Problem comment: Diabetic diet, continue metformin Status: Chronic (5) Obesity: Status: Chronic
[2023-01-25] MEDS: ASPIRIN 81 MG TABLET EC PO (22:46)
[2023-01-25] MEDS: SENNOSIDES 1 TAB TABLET 2 TAB PO (22:46)
[2023-01-26] MEDS: OXYCODONE 5 MG TABLET PO ×3 (01:21→09:01)
[2023-01-26] MEDS: ACETAMINOPHEN 500 MG TABLET 1000 MG PO ×2 (01:21→07:39)
[2023-01-26 03:00] VITALS: BP 141/81; PULSE 84; RESP 16; TEMP 36.4; O2SAT 98
[2023-01-26 06:34] LABS: Hematocrit 38.4 % (37.0-53.0); Hemoglobin* 12.3 gm/dL (13.5-17.5); Immature Granulocytes Abs Auto 0.01 K/uL (0.00-0.30); Immature Granulocytes Pct Auto 0.1 %; Mean Corpuscular HGB Conc 32 gm/dL (32-36); Mean Corpuscular Hemoglobin 28 pg (26-34); Mean Corpuscular Volume 86 fL (80-100); Monocytes Percent Auto 7.7 % (0.0-11.0); Neutrophils Percent Auto 80.2 % (42.0-72.0); Platelet Count* 216 K/uL (140-440); RDW Coefficient of Variation % 12.8 % (11.5-15.5); Red Blood Count 4.48 m/uL (4.30-5.90); White Blood Count* 8.95 K/uL (4.50-11.00)
--- NOTE | 2023-01-26 06:35 | PC.NURSE ---
End of shift [id number] ? Pt alert, oriented x 4, and cooperative during shift. Pt up to bathroom and ambulating in halls with walker, gait belt, and standby assist. Pt tolerating RA, regular diet. Continent of bladder, void x 3 during shift. Dressing CDI, VSS, afebrile. Cryocuff in place on R knee and MELO wraps in place on bilateral LE. RN provided education regarding pain medication at pt request with verbalized understanding. Pt reports pain at 6/10 which is tolerable per pt with PRN interventions in APR. Pt observed to sleep, appears to be resting comfortably at end of shift. ?
[2023-01-26 06:56] LABS: Potassium* 4.3 mmol/L (3.6-5.1); Sodium* 139 mmol/L (135-149)
[2023-01-26 06:59] LABS: Blood Urea Nitrogen* 18 mg/dL (5-24); Creatinine* 0.8 mg/dL (0.5-1.5); Estimated Glomerular Filt Rate 108 ml/min
[2023-01-26 07:02] LABS: INR 1.03 (0.91-1.10); Prothrombin Time 14.1 Seconds
[2023-01-26 07:05] LABS: Slide Review Reflex No
[2023-01-26 07:44] VITALS: BP 144/86; PULSE 86; RESP 22; TEMP 36.6; O2SAT 98
--- NOTE | 2023-01-26 08:58 | P.ORPN_ITS ---
Subjective Subjective Time Seen by Provider: 07:50 Date Seen: 01/26/23 Principal diagnosis: Status post right total knee arthroplasty Interval history: Patient had pain upon arriving at [facility] postoperatively a yesterday. He states he got some sleep off and on last night. He is comfortable currently in his bed. He plans to discharge to home. He feels this knee is more painful than the left knee was post surgery in September. He would like something further for pain control. Ortho Exam Narrative Exam Narrative: Alert and oriented x3. Patient is in no acute distress. Converses without labored breathing. Hearing is grossly intact. Ambulates with a walker. Examination of the right knee shows the dressing is intact. Minimal soft tissue edema. No erythema or warmth or sign of infection. CMS intact right lower extremity. Quad strength 5/5. Not able to straight leg raise. Const Vital Signs, click to edit/add: Vital Signs - 24 hr 01/25/23 10:19 01/25/23 10:25 01/25/23 10:30 Temperature 97.6 F 97.6 F 97.6 F Pulse Rate 84 67 69 Pulse Rate [Left Pulse Oximeter] Respiratory Rate 13 12 18 Blood Pressure 94/63 105/62 93/59 L Blood Pressure [Right Arm] Pulse Oximetry 98 97 97 Oxygen Delivery Method Room Air Room Air Room Air 01/25/23 10:35 01/25/23 10:40 01/25/23 10:45 Temperature 97.6 F 97.6 F 97.6 F Pulse Rate 60 66 57 L Pulse Rate [Left Pulse Oximeter] Respiratory Rate 14 13 12 Blood Pressure 100/63 99/58 L 93/64 Blood Pressure [Right Arm] Pulse Oximetry 97 98 97 Oxygen Delivery Method Room Air Room Air Room Air 01/25/23 10:50 01/25/23 10:55 01/25/23 11:00 Temperature 97.6 F 97.6 F 97.2 F L Pulse Rate 54 L 71 65 Pulse Rate [Left Pulse Oximeter] Respiratory Rate 12 16 16 Blood Pressure 86/70 L 92/58 L 89/57 L Blood Pressure [Right Arm] Pulse Oximetry 98 98 100 Oxygen Delivery Method Room Air Room Air Room Air 01/25/23 11:14 01/25/23 11:30 01/25/23 11:45 Temperature 97.2 F L 96.5 F L Pulse Rate 71 112 H Pulse Rate [Left Pulse Oximeter] 72 Respiratory Rate 16 12 Blood Pressure 110/68 Blood Pressure [Right Arm] 111/80 117/70 Pulse Oximetry 97 97 Oxygen Delivery Method Room Air Room Air Room Air 01/25/23 12:00 01/25/23 12:15 01/25/23 12:30 Temperature Pulse Rate Pulse Rate [Left Pulse Oximeter] 81 76 96 Respiratory Rate 12 Blood Pressure Blood Pressure [Right Arm] 126/73 119/72 126/73 Pulse Oximetry 92 97 96 Oxygen Delivery Method Room Air Room Air Room Air 01/25/23 13:00 01/25/23 13:30 01/25/23 14:30 Temperature 96.8 F L Pulse Rate Pulse Rate [Left Pulse Oximeter] 99 70 88 Respiratory Rate 12 14 14 Blood Pressure Blood Pressure [Right Arm] 128/96 H 134/98 H 140/109 H Pulse Oximetry 99 99 96 Oxygen Delivery Method Room Air Room Air Room Air 01/25/23 15:30 01/25/23 16:30 01/25/23 17:30 Temperature 96.5 F L Pulse Rate Pulse Rate [Left Pulse Oximeter] 81 92 87 Respiratory Rate 12 12 14 Blood Pressure Blood Pressure [Right Arm] 130/82 128/79 135/79 Pulse Oximetry 98 96 94 Oxygen Delivery Method Room Air Room Air Room Air 01/25/23 19:00 01/25/23 23:00 01/26/23 03:00 Temperature 96.7 F L 97.2 F L 97.5 F L Pulse Rate Pulse Rate [Left Pulse Oximeter] 96 89 84 Respiratory Rate 20 20 16 Blood Pressure Blood Pressure [Right Arm] 143/78 H 133/76 141/81 H Pulse Oximetry 95 98 98 Oxygen Delivery Method Room Air Room Air Room Air 01/26/23 07:44 Temperature 97.8 F Pulse Rate Pulse Rate [Left Pulse Oximeter] 86 Respiratory Rate 22 Blood Pressure Blood Pressure [Right Arm] 144/86 H Pulse Oximetry 98 Oxygen Delivery Method Nasal Cannula Assessment and Plan Assessment and plan (1) Status post right knee replacement: Problem details: 01/25/2023 Nicholas Status: Acute Assessment and Plan: Plan for discharge is today to home if they meet discharge criteria. DVT prophylaxis includes aspirin 81 mg twice daily x1 month, Brant stockings x1 month may remove for 1 hr per day, frequent ambulation Remove dressing in 1 week. Observe wound and phone Orthopedics with any questions or concerns Return to clinic in 1 week for a wound check Return to clinic in 6 weeks with surgeon Minimize narcotic use. Wean off and discontinue soon as possible. Activities as tolerated. No strenuous activity. Outpatient physical therapy as scheduled. Ice and elevate the operative extremity. No restriction on ice. I have added Vistaril and Celebrex to his discharge medications.
[2023-01-26] MEDS: ASPIRIN 81 MG TABLET EC PO (09:01)
[2023-01-26] MEDS: METFORMIN ER 500 MG PO (09:03)
[2023-01-26] MEDS: SENNOSIDES 1 TAB TABLET 2 TAB PO (09:03)
--- NOTE | 2023-01-26 11:33 | PC.NURSE ---
shift note: pt up sba/walker with steady/slow gait. LS clr bilat.pt using IS indept. rt knee drsg c/d/i. slight swelling around knee. cap refill and PP + bilat feet. Pt using acewraps for compression. cryo cuff and belongings sent with pt at dc. IV dc'd intact lt hand
== END 2023-01-26 11:00 | disposition home or self-care (01) ==
LOC: OR 05:53 → MEDSURG 05:55
PROVIDERS: PCP Family Medicine; Visit Provider Orthopaedic Surgery
PROC: (CPT 27447; principal; 2023-01-25 07:15)
DX: M17.11 Unilateral primary osteoarthritis, right knee (principal); G89.18 Other acute postprocedural pain; I10 Essential (primary) hypertension; R73.03 Prediabetes; E66.9 Obesity, unspecified; F10.29 Alcohol dependence with unspecified alcohol-induced disorder; Z68.43 Body mass index [BMI] 50.0-59.9, adult; Z87.891 Personal history of nicotine dependence
CPT/HCPCS: 27447; 01402; 36415; 64447; 64454; 73560; 76942; 82565; 84132; 84295; 84520; 85025; 85610; 97110; 97116; 97161; 97165; 97535; A9270; C1776; J0690; J1100; J1170; J2250; J2405; J2704; J2795; J3010; J3490; J7120

== ENCOUNTER 2023-11-10 06:08 | Day surgery (SDC) | payer OTHER, SELFPAY ==
[2023-11-10] VITALS (16 sets, daily range): BP systolic 106–132; BP diastolic 60–107; PULSE 72–98; RESP 10–16; TEMP 36.3–36.6; O2SAT 95–100; BMI 53.1
--- OUTSIDE RECORDS SUMMARY | 2023-11-10 06:11 | XMS_ITS | Encounter Summary ---
[facility] Organization [facility] Address [address] [place] [address] Care Team Providers Care Study Coordinator Name Role Phone Mohit Castaneda MD Primary Care Provider + [phone] Reason for Visit * Reason Comments Refill metFORMIN XR (GLUCOP ANY XR) 500 MG 24 hour release tablet [Pharmacy Med Name: METFORMIN ER 500MG 24HR TABS] Encounter Details Date Type Department Care Team (Late st Contact Info) Description 10/25/2023 Refill [facility] [id number] [place] [id number] [place] [address] [place] [address] Refill (metFORMIN XR (GLUCOPHAGE XR) 500 MG 24 hour release tablet [Pharmacy Med Name: METFORMIN ER 500MG 24HR TABS]) Social History Tobacco Use Types Packs/Day Years Used Date Smoking Tobacco: Former Cigarettes 1 20 Smokeless Tobacco: Never Alcohol Use Standard Drinks/Week Comments Not Currently 0 (1 standard drink = 0.6 oz pur e alcohol) PHQ-2 Answer Date Recorded PHQ-2 Score 0 09/21/2022 Sex and Gender Information Value Date Recorded Sex Assigned at Not on file Gender Identity Not on file Sexual Orientation Not on file documented as of this encounter Nursing Notes * Radha Thornton RN - 10/26/2023 11:07 AM CDT Further Assistance Needed on Refill from Clinician RN reviewed. Patient due for Lab(s). Review pended order for accuracy and sign if appropriate, Clinician to order lab(s) and document ifpatient is due for lab only visit or office visit and lab, and Route to Front Line to schedule appointment Requested Prescriptions Pending Prescriptions Disp Refills metFORMIN XR (GLUCOPHAGE XR) 500 MG 24 hour release tablet [Pharmacy Med Name: METFORMIN ER 500MG 24HR TABS] 90 Tablet 0 Sig: TAKE 1 TABLET(500 MG) BY MOUTH EVERY EVENING WITH A MEAL documented in this encounter Plan of Treatment Not on file documented as of this encounter Visit Diagnoses Not on filedocumented in this encounter Care Teams Study Coordinator Relationship Specialty [place] [address] [place] [address] PCP - General Family Practice 07/14/22 documented as of this encounter
--- OUTSIDE RECORDS SUMMARY | 2023-11-10 06:11 | XMS_ITS | Encounter Summary ---
Author Organization [facility] Address [address] [place] [address] Care Team Providers Care Display Decorator Name Role Phone Jennifer Alfaro PA-C Primary Care Provi corinna Jennifer Alfaro PA-C Unavailable + [phone] Laurie Reyes Ra, APRN CONNIE SCRATCHER Unavailable [phone] Artur Bernal MD Unavailable +- [phone] Mohit Castaneda MD Primary Care Provider [phone] Encounter Details Date Type Department Care Team (Late st Contact Info) Description 01/24/2019 MyC Medical Advice [facility] [address] [place] [address] Kaya Aggarwal Social History Tobacco Use Types Packs/Day Years Used Date Smoking Tobacco: Former Cigarettes Q uit: 03/31/2001 Smokeless Tobacco: Never Alcohol Use Standard Drinks/Week Comments Yes 0 (1 standard drink = 0.6 oz pur e alcohol) 5-6/ week PHQ-2 Answer Date Recorded PHQ-2 Score 1 03/07/2018 Sex and Gender Information Value Date Recorded Sex Assigned at Male 01/10/2021 6:32 PM [employer] ADJUST[employer] Gender Identity Male 01/10/2021 6:32 PM [employer]ILY [employer] ADJUSTER Sexual Orientation Straight 01/10/2021 6: 32 PM BODILY INJURY ADJUSTER documented as of this encounter Plan of Treatment Not on file documented as of this encounter Visit Diagnoses Not on filedocumented in this encounter Care Teams Display Decorator Relationship Specialty Start Date End Date Jennifer Alfaro PA-C PCP - General Physician Paramedic Rn 06/24/15 08/24/21 [place] [address] [place] [address] PCP - General 08/25/21 Jennifer Alfaro PA-C [facility] [address] [place] [address] Assigned PCP 03/26/18 03/24/19 Laurie Reyes Ra, GAMBLING SUPERVISOR [facility] [address] [place] [address] Assigned PCP 03/25/19 03/29/20 Artur Bernal MD [address] [place] [address] Assigned PCP 08/03/20 03/28/21 documented as of this encounter
--- OUTSIDE RECORDS SUMMARY | 2023-11-10 06:11 | XMS_ITS | Encounter Summary ---
[facility] Address [address] [place] [address] Care Team Providers Care Ice Cream Man Name Role Phone Mohit Menon MD Primary Care Provider + [phone] Reason for Visit * Reason Comments Refill metFORMIN XR (GLUCOP ANY XR) 500 MG 24 hour release tablet [Pharmacy Med Name: METFORMIN ER 500MG 24HR TABS] Encounter Details Date Type Department Care Team (Late st Contact Info) Description 07/27/2023 Refill [facility] [id number] [place] [id number] [place] [address] [place] [address] Refill (metFORMIN XR (GLUCOPHAGE XR) 500 MG [...] Nursing Notes * Radha Thornton RN - 07/29/2023 3:03 PM CDT Further Assistance Needed on Refill from Clinician RN reviewed. Patient due for Lab(s). Medication has been refilled for 90 day supply per standing order. Clinician to order lab(s) and document if patient is due for lab only visit or office visit and laband Route to Front Line to schedule appointment Requested Prescriptions Pending Prescriptions Disp Refills metFORMIN XR (GLUCOPHAGE XR) 500 MG 24 hour release tablet [Pharmacy Med Name: METFORMIN ER 500MG 24HR TABS] 90 Tablet 0 Sig: TAKE 1 TABLET(500 MG) BY MOUTH EVERY EVENING WITH A MEAL * Denilson Darnell Xrwcomm - 07/27/2023 5:46 AM CDT metFORMIN XR (GLUCOPHAGE XR) 500 MG 24 hour release tablet [Pharmacy Med Name: METFORMIN ER 500MG 24HR TABS] Metformin -> Refill x 3 months (until due for a(n) HBA1C check) Last qualifying visit: 01/11/2023 (with MOHIT MENON) Next scheduled visit: None Last ordered by MOHIT MENON: 10/20/2022 (280 days ago) QTY: 90, Refills: 3, Sig: take 1 tablet(500 mg) by mouth every evening with a meal (unchanged) Cr: 0.99 mg/dL on 01/11/2023 HBA1C: 5.8 % on 09/21/2022 [facility] Embedded Refills, Reference: [id number], 07/27/2023 5:46:47 AM CDT, Pool: Refill Centralized Services - Primary Care ([id number]) * Denilson Darnell - 07/27/2023 5:46 AM CDT The following lab order(s) may be associated with the following Patient Result Comment (Entered by Mohit Menon MD at 09/26/2022 10:36 AM): HGB A1C Dear BrentResults - Prediabetes [facility]: As recommended by the [place] [employer], we use information about your health to estimate your risk for a heart attack or stroke. Your risk in the next 10 years is 3%. The information we used to estimate your risk is: Your age 47, sex, blood pressure of 118/80 mm Hg, use of blood pressure lowering medication, total cholesterol of 190 mg/dl, HDL (good cholesterol) of 35 mg/dl, no diagnosis of diabetes, no tobacco or nicotine use. 10 year risk of cardiac or stroke event is low at 3%Cholesterol is acceptable Remaining labs are acceptableSushant MD Tonya 09/26/2022, 10:35 AM * Denilson Darnell - 07/27/2023 5:46 AM CDT The following lab order(s) may be associated with the following Patient Result Comment (Entered by Mohit Menon MD at 01/13/2023 8:44 AM): BASIC METABOLIC PANEL Dear BrentResults - Kidney electrolytes normalMild anemiaOtherwise labs acceptableSushant MD Tonya 01/13/2023, 7:44 AM documented in this encounter Plan of Treatment Not on file documented as of this encounter Visit Diagnoses Not on filedocumented in this encounter Care Teams Ice Cream Man Relationship Specialty [place] [address] [place] [address] PCP - General Family Practice 07/14/22 documented as of this encounter
--- OUTSIDE RECORDS SUMMARY | 2023-11-10 06:11 | XMS_ITS | Encounter Summary ---
Author Organization [facility] Address [address] [place] [address] Care Team Providers Care Lead Janitor Name Role Phone Mohit Castaneda MD Primary Care Provider [phone] Encounter Details Date Type Department Care Team (Latest Contact Info) Description 07/19/1994 Orders Only [facility] [place], [place] Social History Tobacco Use Types Packs/Day Years Used Date Smoking Tobacco: Never Assessed Sex and Gender Information Value Date Recorded Sex Assigned at Not on file Gender Identity Not on file Sexual Orientation Not on file documented as of this encounter Plan of Treatment Not on file documented as of this encounter Visit Diagnoses Not on filedocumented in this encounter Care Teams Lead Janitor Relationship Specialty [place] [address] [place] [address] PCP - General Family Practice 07/14/22 documented as of this encounter
--- OUTSIDE RECORDS SUMMARY | 2023-11-10 06:11 | XMS_ITS | Encounter Summary ---
Author Organization [facility] Address [address] [place] [address] Care Team Providers Care Athletic Monitor Name Role Phone Mohit Castaneda MD Primary Care Provider [phone] Reason for Visit * Reason Comments PRE-OP EXAM Encounter Details Date Type Department Care Team (Late st Contact Info) Description 11/08/2023 2:30 PM CDT Pre-Op Visit [facility] [address] [place] [address] [place] [address] [place] [address] Preop general physical exam (Primary Dx); Chronic pain of right knee; Prediabetes Social History Tobacco Use Types Packs/Day Years Used Date Smoking Tobacco: Former Cigarettes 1 20 Q uit: 10/29/1994 Smokeless Tobacco: Never Tobacco Cessation:Counseling Given: Not Answered Comments:on and off social smoker; less than a pack a day over many years. Alcohol Use Standard Drinks/Week Comments Not Currently 0 (1 standard drink = 0.6 oz pur e alcohol) have not drink in years PHQ-2 Answer Date Recorded PHQ-2 Score 0 09/21/2022 Sex and Gender Information Value Date Recorded Sex Assigned at Not on file Gender Identity Not on file Sexual Orientation Not on file documented as of this encounter Last Filed Vital Signs Vital Sign Reading Time Taken Comments Blood Pressure 122/79 11/08/2023 2:40 PM CDT Pulse 85 11/08/2023 2:40 PM CDT Temperature - - Respiratory Rate - - Oxygen Saturation - - Inhaled Oxygen Concentration - - Weight 163.3 kg (360 lb) 11/08/2023 2:40 PM CDT Height 177 cm (5' 9.69) 11/08/2023 2:40 PM CDT Body Mass Index 52.12 11/08/2023 2:40 PM CDT documented in this encounter Patient Instructions * Patient Instructions* Mohit Castaneda MD - 11/08/2023 2:30 PM CDT losartan-hydrochlorothiazide (HYZAAR) 50-12.5 MG tablet [[id number]] - Do not take on morning of procedure. metFORMIN XR (GLUCOPHAGE XR) 500 MG 24 hour release tablet [[id number]] - Do not take within 24 hours of procedure. Follow your individualized medication recommendations as described above. In addition, please stop all [id number] medications including aspirin, ibuprofen (Advil, Motrin), naproxen (Aleve, Naprosyn), herbal remedies and supplements one week prior to procedure unless directed otherwise by your care team. You may continue to take acetaminophen (Tylenol) up to the dayof your procedure. Normal exam You may proceed for surgery It's been a pleasure seeing you today. Mohit Castaneda MD 11/08/2023, 3:06 PM Continue all other medications as currently taking. Let your care team know if you have questions. On the day of your procedure, do not wear any hair product including hair sprays and gels and avoidusing body sprays and deodorants/antiperspirants. Bring with you to the site of the procedure: Any oral appliances or CPAP equipment related to sleep apnea Any other health-related equipment or devices you use daily documented in this encounter Plan of Treatment Scheduled Orders Name Type Priority Associated Diagnoses Orde r Schedule Hgb A1C Lab Routine Prediabetes Expected: 11/08/2023, Expires: documented as of this encounter Results * (ABNORMAL) BMP (11/08/2023 2:56 PM CDT) Sodium 139 136 - 145 mmol/L 11/08/2023 7:02 PM T [facility] Potassium 3.9 3.5 - 5.1 mmol/L 11/08/2023 7:02 PM T [facility] Chloride 103 98 - 109 mmol/L 11/08/2023 7:02 PM T [facility] CO2 28 20 - 29 mmol/L 11/08/2023 7:02 PM T [facility] Anion Gap 8 6 - 16 mmol/L 11/08/2023 7:02 PM T [facility] Calcium 9.4 8.4 - 10.4 mg/dL 11/08/2023 7:02 PM [facility] BUN 19 7 - 26 mg/dL 11/08/2023 7:02 PM T [facility] Creatinine 0.94 0.73 - 1.18 mg/dL 11/08/2023 7:02 PM T [facility] Glucose 118(H) 70 - 100 mg/dL 11/08/2023 7:02 PM [facility] Comment:The given reference range is for the fasting state. Non-fasting reference range for glucose is 70 - 180 mg/dL. GFR, Estimated >60 >60 mL/min/1. 73m2 11/08/2023 7:02 PM T [facility] Hours Fasting 0.1 8 - 12 Hours 11/08/2023 7:02 PM [facility] Blood Venipuncture / Unknown 11/08/2023 2:56 PM CDT 11/08/2023 2:56 PM T Mohit Castaneda MD LAB_1 [facility] [address] * (ABNORMAL) Hgb A1C (11/08/2023 2:56 PM CDT) Hemoglobin A1C 5.8(H) <=5.6 % 11/08/2023 7:28 PM CDT [facility] Estimated Average Glucose (Calc) 120 < 117 mg/dL 11/08/2023 7:28 PM CDT [facility] Comment:Estimated average gl ucose (eAG) converts A1c into glucose units (mg/dL) and estimates average glucose over the past approximately 3 months. The eAG reference interval (<117 mg/dL) corresponds to an A1c of <5.7%. Blood Venipuncture / Unknown 11/08/2023 2:56 PM CDT 11/08/2023 2:56 PM CDT Narrative [facility] - 11/08/2023 7:28 PM CDT For patients not previously diagnosed with diabetes: 5.7-6.4%: Increased risk for diabetes 6.5% and greater: Diagnostic for diabetes For patients diagnosed with diabetes: <8.0%: Goal of therapy for ages 18-75 Clinicians may recommend a higher or lower goal for specific individuals. Mohit Castaneda MD LAB_1 [facility] [address] documented in this encounter Visit Diagnoses Diagnosis Preop general physical exam- Primary Other specified pre-operative examination Chronic pain of right knee Prediabetes Other abnormal glucose documented in this encounter Care Teams Athletic Monitor Relationship Specialty [place] [address] [place] [address] PCP - General Family Practice 07/14/22 documented as of this encounter
--- OUTSIDE RECORDS SUMMARY | 2023-11-10 06:11 | XMS_ITS | Clinical Summary ---
Author Organization [place] Address [address] [facility] [place] [address] Care Team Providers Care Cage Supervisor Name Role Phone Mohit Castaneda MD Primary Care Provider + [phone] Allergies No known active allergies Medications Medication Sig Dispensed Refills Start Date End Date Status Multiple Vitamins-Minerals (MULTIVITAL PO) Take by mouth daily Active ibuprofen (ADVIL/MOTRIN) 600 MG tablet TK 1 T PO QID PRN P 1 05/06/2016 Active metFORMIN (GLUCOPHAGE) 500 MG tablet Take 500 mg by mouth daily (with dinner) Active losartan (COZAAR) 25 MG tablet Take 12.5 mg by mouth daily Active acetaminophen (TYLENOL) 500 MG tablet Take 1,000 mg by mouth every 6 hours as needed for mild pain Active HYDROcodone-acetaminop hen (NORCO) 5-325 MG tabletIndications:Acut e postoperative pain Take 1-2 tablets by mouth every 4 hours as needed for moderate to severe pain 15 tablet 09/14/2021 Active Active Problems Problem Noted Date Diagnosed Date Alcohol dependence with other alcohol-induced di sorder 03/22/2018 Elevated liver enzymes 12/08/2017 Morbid obesity 03/23/2017 Obesity 08/13/2009 Elevated blood pressure read ing without diagnosis of hypertension 08/13/2009 Resolved Problems Problem Noted Date Diagnosed Date Resolved Date Lumbago 08/16/2008 09/23/2008 Immunizations Name Administration Dates Next Due Flu, Unspecified 01/04/1996 Hepatitis B, Adult 03/04/1997,06/08/1996, 997 Influenza Vaccine >6 months,quad, PF 12/13/2017, 11/28/2016,11/13/2015 TDAP Vaccine (Adacel) 03/23/2017 Td (Adult), Adsorbed 05/07/1996 Family History Medical History Relation Comments Diabetes Father Obesity Father Cerebrovascular Disease Maternal Grandfather Coronary Artery Disease Maternal Grandfather Diabetes Maternal Grandfather Diabetes Maternal Grandmother Hyperlipidemia Maternal Grandmother Obesity Maternal Grandmother Obesity Mother C.A.D. Paternal Grandmother Coronary Artery Disease Paternal Grandmother Diabetes Paternal Grandmother Obesity Paternal Grandmother Cancer - colorectal No family hx of Hypertension No family hx of Relation Status Comments Brother Alive Father Alive Maternal Grandfather Maternal Grandmother Mother Alive Paternal Grandmother Social History Tobacco Use Types Packs/Day Years Used Date Smoking Tobacco: Former Cigarettes Q uit: 2020 Smokeless Tobacco: Never Alcohol Use Standard Drinks/Week Comments Not Currently 0 (1 standard drink = 0.6 oz pur e alcohol) PHQ-2 Answer Date Recorded PHQ-2 Score 1 03/07/2018 Adolescent Education Answer Date Record ed Getting School Help Needed Not on file 12/05 Sex and Gender Information Value Date Recorded Sex Assigned at Male 01/10/2021 6:32 PM STAFF COUNSEL Gender Identity Male 01/10/2021 6:32 PM STAFF COUNSEL Sexual Orientation Straight 01/10/2021 6: 32 PM STAFF COUNSEL Last Filed Vital Signs Vital Sign Reading Time Taken Comments Blood Pressure 165/91 09/14/2021 4:39 PM CDT Pulse 99 09/14/2021 3:20 PM CDT Temperature 36.5 ??C (97.7 ??F) 09/14/2021 4:39 PM CD T Respiratory Rate 16 09/14/2021 3:30 PM CDT Oxygen Saturation 98% 09/14/2021 4:39 PM CDT Inhaled Oxygen Concentration - - Weight 172.8 kg (381 lb) 09/14/2021 12:00 PM CDT Height 175.3 cm (5' 9) 09/14/2021 12:00 PM CDT Body Mass Index 56.26 09/14/2021 12:00 PM CDT Plan of Treatment Health Maintenance Due Date Last Done Comments ADVANCE CARE PLANNING 1974 ANNUAL REVIEW OF HM ORDERS 1974 CT COLONOGRAPHY 1974 FIT 1974 FLEX SIG 1974 sDNA (Cologuard) 1974 Pneumococcal Vaccine: Pediatrics (0 to 5 Years) and At-Risk Patients (6 to 64 Years) (1 of 2 - PCV) 01/19/1980 COLONOSCOPY 01/19/1984 COLORECTAL CANCER SCREENING 01/19/1984 HIV SCREENING 1989 HEPATITIS C SCREENING 01/19/1992 YEARLY PREVENTIVE VISIT 03/23/2018 03/23/19 18, 05/07/1996, 07/21/1995 LIPID 03/23/2022 03/23/2017 PHQ-2 (once per calendar year) 2023 03/23/2017, 03/09/2016, 06/11/2015 COVID-19 Vaccine ( season) 2023 12/29/2020, 06/16/2020, 05/19/2020 INFLUENZA VACCINE (#1) 2023 , 11/25/2019, 11/09/2018, Additional history exists GLUCOSE 11/30/2023 11/29/2020, 11/28, 03/23/2017 ZOSTER IMMUNIZATION (1 of 2) 01/19/2024 DTAP/TDAP/TD IMMUNIZATION (3 - Td or Tdap) 03/23/2027 03/23/2017, 05/07/1996 HEPATITIS B IMMUNIZATION Completed 998, 03/04/1997, 06/08/1996, Additional history exists HPV IMMUNIZATION Aged Out No longer e ligible based on patient's age to complete this topic MENINGITIS IMMUNIZATION Aged Out No l onger eligible based on patient's age to complete this topic RSV MONOCLONAL ANTIBODY Aged Out No l onger eligible based on patient's age to complete this topic Procedures Procedure Name Priority Date/Time Associated Diagnosis Comments BASIC METABOLIC PANEL STAT 11/29/2020 10:02 PM CDT LIPID REFLEX TO DIRECT LDL PANEL Routine 03/23/2017 9:23 AM STAFF COUNSEL Routine general medical examination at a health care facility from Last 3 Months or Most Recently Relevant to Health Maintenance Results * (ABNORMAL) Basic metabolic panel (BMP) (11/29/2020 10:02 PM CDT) Pathologist [facility] Sodium 137 133 - 144 mmol/L 11/29/2020 10:23 PM CDT [facility] Potassium 3.9 3.4 - 5.3 mmol/L 11/29/2020 10:23 PM CDT [facility] Chloride 99 94 - 109 mmol/L 11/29/2020 10:23 PM CDT [facility] Carbon Dioxide (CO2) 20 20 - 32 mmol/L 11/29/2020 10:23 PM CDT [facility] Anion Gap 18(H) 3 - 14 mmol/L 11/29/2020 10:23 PM CDT [facility] Urea Nitrogen 14 7 - 30 mg/dL 11/29/2020 10:23 PM CDT [facility] Creatinine 0.91 0.66 - 1.25 mg/dL 11/29/2020 10:23 PM CDT [facility] Calcium 8.3(L) 8.5 - 10.1 mg/dL 11/29/2020 10:23 PM CDT [facility] Glucose 86 70 - 99 mg/dL 11/29/2020 10:23 PM CDT [facility] GFR Estimate >90 >60 mL/min/1.7 3m2 11/29/2020 10:23 PM CDT [facility] Comment:As of September 07, 2020, eGFR is calculated by the CKD-EPI creatinine equation, without race adjustment. eGFR can be influenced by muscle mass, exercise, and diet. The reported eGFR is an estimation only and is only applicable if the renal function is stable. Blood BLOOD SPECIMEN / Unknown Venipuncture / Unknown 11/29/2020 10:02 PM CDT 11/29/2020 10:06 PM CDT Riaz Barillas MD LAB - BLOOD ORDER [facility] [address] Lab (1st floor, no room number) [place] [address], [facility] [phone] * (ABNORMAL) Lipid panel reflex to direct LDL Fasting (03/23/2017 9:23 AM STAFF COUNSEL) Cholesterol 228(H) <200 mg/dL 03/24/2017 10:50 AM [facility] Comment:Desirable: <200 mg/d l Triglycerides 129 <150 mg/dL 03/24/2017 10:50 AM [facility] Comment:Fasting specimen HDL Cholesterol 67 >39 mg/dL 8 10:50 AM [facility] LDL Cholesterol Calculated 135(H) <100 mg/dL 03/24/2017 10:50 AM [facility] Comment: Above desirable: ??100-129 mg/dl Borderline High: ??130-159 mg/dL High: ? 160-189 mg/dL Very high: ? >189 mg/dl Non HDL Cholesterol 161(H) <130 mg/dL 03/24/2017 10:50 AM [facility] Comment: Above Desirable: ??130-159 mg/dl Borderline high: ??160-189 mg/dl High: ? 190-219 mg/dl Very high: ? >219 mg/dl Blood specimen (specimen) 03/23/2017 9:23 AM STAFF COUNSEL 03/23/2017 9:24 AM STAFF COUNSEL Laurie Reyes APRN [facility] - BLOOD ORDERABLES [facility] [address] [place] [address] from Last 3 Months or Most Recently Relevant to Health Maintenance Care Teams Cage Supervisor Relationship Specialty [place] [address] [place] [address] PCP - General 08/25/21
--- OUTSIDE RECORDS SUMMARY | 2023-11-10 06:11 | XMS_ITS | Encounter Summary ---
Author Organization [facility] Address [address] [facility] [place] [address] Care Team Providers Care Residential Real Estate Appraiser Name Role Phone Mohit Castaneda MD Primary Care Provider + [phone] Encounter Details Date Type Department Care Team (Late st Contact Info) Description 11/08/2023 2:50 PM CDT Lab Visit Laboratory at [address] [address] Prediabetes; Preop general physical exam Social History Tobacco Use Types Packs/Day Years Used Date Smoking Tobacco: Former Cigarettes 1 20 Q uit: 10/29/1994 Smokeless Tobacco: Never Comments:on and off social s moker; less than a pack a day over [...] on file documented as of this encounter Procedures Procedure Name Priority Date/Time Associated Diagnosis Comments CBC AND DIFFERENTIAL PANEL Routine 11/08/2023 2:56 PM CDT Preop general physical exam COMPLETE BLOOD COUNT-W/DIFF Routine 11/08/2023 2:56 PM CDT Preop general physical exam BASIC METABOLIC PANEL Routine 11/08/2023 2:56 PM CDT Preop general physical exam HGB A1C Routine 11/08/2023 2:56 PM CDT Prediabetes documented in this encounter Results * (ABNORMAL) Complete Blood Count-W/Diff (11/08/2023 2:56 PM CDT) [facility] Signature WBC 6.9 3.5 - 10.5 x10(9)/L 11/08/2023 2:59 PM CDT [facility] RBC 4.72 4.32 - 5.72 x10(12)/L 11/08/2023 2:59 PM CDT [facility] Hemoglobin 12.9(L) 13.5 - 17.5 g/dL 11/08/2023 2:59 PM CDT [facility] HCT 40.1 38.8 - 50.0 % 11/08/2023 2:59 PM CDT [facility] MCV 85.0 80.0 - 100.0 fL 11/08/2023 2:59 PM CDT [facility] MCH 27.3(L) 27.6 - 33.3 pg 11/08/2023 2:59 PM CDT [facility] MCHC 32.2 31.5 - 35.2 g/dL 11/08/2023 2:59 PM CDT [facility] RDW 13.0 11.9 - 15.5 % 11/08/2023 2:59 PM CDT [facility] Platelets 194 150 - 450 x10(9)/L 11/08/2023 2:59 PM CDT [facility] Neutrophil Absolute 3.9 1.7 - 7.0 10(9)/L 11/08/2023 2:59 PM CDT [facility] Lymphocyte Absolute 2.3 1.0 - 4.8 10(9)/L 11/08/2023 2:59 PM CDT [facility] Monocyte Absolute 0.5 0.2 - 0.9 10(9)/L 11/08/2023 2:59 PM CDT [facility] Eosinophil Absolute 0.2 0.0 - 0.5 10(9)/L 11/08/2023 2:59 PM CDT [facility] Basophil Absolute 0.0 0.0 - 0.3 10(9)/L 11/08/2023 2:59 PM CDT [facility] Immature Granulocyte % 0.1 0.0 - 0.5 % 11/08/2023 2:59 PM CDT [facility] Blood Venipuncture / Unknown 11/08/2023 2:56 PM CDT 11/08/2023 2:56 PM CDT Mohit Castaneda MD LAB_1 [facility] [address] [place] [address], [facility] * (ABNORMAL) BMP (11/08/2023 2:56 PM CDT) Sodium 139 136 - 145 mmol/L 11/08/2023 7:02 PM [facility] Potassium 3.9 3.5 - 5.1 mmol/L 11/08/2023 7:02 PM [facility] Chloride 103 98 - 109 mmol/L 11/08/2023 7:02 PM [facility] CO2 28 20 - 29 mmol/L 11/08/2023 7:02 PM [facility] Anion Gap 8 6 - 16 mmol/L 11/08/2023 7:02 PM [facility] Calcium 9.4 8.4 - 10.4 mg/dL 11/08/2023 7:02 PM [facility] BUN 19 7 - 26 mg/dL 11/08/2023 7:02 PM [facility] Creatinine 0.94 0.73 - 1.18 mg/dL 11/08/2023 7:02 PM [facility] Glucose 118(H) 70 - 100 mg/dL 11/08/2023 7:02 PM [facility] Comment:The given reference range is for the fasting state. Non-fasting reference range for glucose is 70 - 180 mg/dL. GFR, Estimated >60 >60 mL/min/1. 73m2 11/08/2023 7:02 PM CDT [facility] Hours Fasting 0.1 8 - 12 Hours 11/08/2023 7:02 PM CDT [facility] Blood Venipuncture / Unknown 11/08/2023 2:56 PM CDT 11/08/2023 2:56 PM CDT Mohit Castaneda MD LAB_1 Performing Organization Address [facility] de Phone Number [facility] [address] * (ABNORMAL) Hgb A1C (11/08/2023 2:56 PM CDT) Hemoglobin A1C 5.8(H) <=5.6 % 11/08/2023 7:28 PM CDT [facility] Estimated Average Glucose (Calc) 120 < 117 mg/dL 11/08/2023 7:28 PM CDT [facility] Comment:Estimated average gl ucose (eAG) converts A1c into glucose units (mg/dL) and estimates average glucose over the past approximately 3 months. The eAG reference interval (<117 mg/dL) corresponds to an A1c of <5.7%. Blood Venipuncture / Unknown 11/08/2023 2:56 PM CDT 11/08/2023 2:56 PM CDT Narrative [facility] - 11/08/2023 7:28 PM CDT For patients not previously diagnosed with diabetes: 5.7-6.4%: Increased risk for diabetes 6.5% and greater: Diagnostic for diabetes For patients diagnosed with diabetes: <8.0%: Goal of therapy for ages 18-75 Clinicians may recommend a higher or lower goal for specific individuals. Mohit Castaneda MD LAB_1 Performing Organization Address [facility] Co de Phone Number [facility] [address] documented in this encounter Visit Diagnoses Diagnosis Prediabetes Other abnormal glucose Preop general physical exam Other specified pre-operative examination documented in this encounter Care Teams Residential Real Estate Appraiser Relationship Specialty [place] [address] [place] [address] PCP - General Family Practice 07/14/22 documented as of this encounter
--- OUTSIDE RECORDS SUMMARY | 2023-11-10 06:11 | XMS_ITS | Referral Summary ---
Author Organization [place] Address [address] [facility] [address] Care Team Providers Care School Bus Attendant Name Role Phone Mohit Castaneda MD Primary Care Provider + [phone] Allergies No known active allergies Medications Medication [...] Vaccine (Adacel) 03/23/2017 Td (Adult), Adsorbed 05/07/1996 Social History Tobacco Use Types Packs/Day Years Used Date Smoking Tobacco: Former Cigarettes Q uit: 2019 Smokeless Tobacco: Never Alcohol Use Standard Drinks/Week Comments Not Currently 0 (1 standard drink = 0.6 oz pur e alcohol) PHQ-2 Answer Date Recorded PHQ-2 Score 1 03/07/2018 Adolescent Education Answer Date Record ed Getting School Help Needed Not on file 12/05 Sex and Gender Information Value Date Recorded Sex Assigned at Male 01/10/2021 6:32 PM LEGAL ARCHIVIST Gender Identity Male 01/10/2021 6:32 PM LEGAL ARCHIVIST Sexual Orientation Straight 01/10/2021 6: 32 PM LEGAL ARCHIVIST Last Filed Vital Signs Vital Sign Reading [...] 09/14/2021 12:00 PM CDT Plan of Treatment Not on file Procedures Procedure Name Priority Date/Time Associated Diagnosis Comments BASIC METABOLIC PANEL STAT 11/29/2020 10:02 PM CDT LIPID REFLEX TO DIRECT LDL PANEL Routine 03/23/2017 9:23 AM LEGAL ARCHIVIST Routine general medical examination at a health care facility from Last 3 Months or Most Recently Relevant to Health Maintenance Results * (ABNORMAL) Basic metabolic panel (BMP) (11/29/2020 10:02 PM CDT) Sodium 137 133 - 144 mmol/L 11/29/2020 [...] >90 >60 mL/min/1.7 3m2 11/29/2020 10:23 PM T [facility] Comment:As of September 07, 2020, eGFR [...] MD LAB - BLOOD ORDER [facility] Acute Care Lab [address] Lab (1st floor, no room number) [place] [address], [facility] [phone] * (ABNORMAL) Lipid panel reflex to direct LDL Fasting (03/23/2017 9:23 AM LEGAL ARCHIVIST) Cholesterol 228(H) <200 mg/dL 03/24/2017 10:[address] [facility] Comment:Desirable: <200 mg/d l Triglycerides 129 <150 mg/dL 03/24/2017 10:[address] [facility] Comment:Fasting specimen HDL Cholesterol 67 >39 mg/dL 201 8 10:50 AM [facility] LDL Cholesterol Calculated 135(H) <100 mg/dL 03/24/2017 10:50 AM [facility] Comment: Above desirable: ??100-129 mg/dl Borderline High: ??130-159 mg/dL High: ? 160-189 mg/dL Very high: ? >189 mg/dl Non HDL Cholesterol 161(H) <130 mg/dL 03/24/2017 10:50 AM [facility] Comment: Above Desirable: ??130-159 mg/dl Borderline high: ??160-189 mg/dl High: ? 190-219 mg/dl Very high: ? >219 mg/dl Blood specimen (specimen) 03/23/2017 9:23 AM LEGAL ARCHIVIST 03/23/2017 9:24 AM LEGAL ARCHIVIST Laurie Reyes APRN [employer] LAB - BLOOD ORDERABLES [facility] [address] [place] [address] from Last 3 Months or Most Recently Relevant to Health Maintenance Care Teams School Bus Attendant Relationship Specialty [place] [address] [place] [address] PCP - General 08/25/21
--- OUTSIDE RECORDS SUMMARY | 2023-11-10 06:11 | XMS_ITS | Encounter Summary ---
Author Organization [facility] Address [address] [place] [address] Care Team Providers Care Director Of Consumer Marketing Name Role Phone Mohit Menon MD Primary Care Provider [phone] Reason for Visit * Reason Comments Refill losartan-hydrochloro thiazide (HYZAAR) 50-12.5 MG tablet [Pharmacy Med Name: LOSARTAN/HCTZ 50/12.5MG TABLETS] Encounter Details Date Type Department Care Team (Late st Contact Info) Description 10/25/2023 Refill [facility] [address] [place] [address] [place] [address] [place] [address] Refill (losartan-hydrochlorothi azide (HYZAAR) 50-12.5 MG tablet [Pharmacy Med Name: LOSARTAN/HCTZ 50/12.5MG TABLETS]) Social History Tobacco Use Types Packs/Day Years [...] as of this encounter Nursing Notes * Steff Gallardo, RN - 10/25/2023 2:41 PM CDT Refilled per standing order. * Denilson Darnell Xrwcomm - 10/25/2023 5:43 AM CDT losartan-hydrochlorothiazide (HYZAAR) 50-12.5 MG tablet [Pharmacy Med Name: LOSARTAN/HCTZ 50/12.5MGTABLETS] Hypertension & Diuretics -> Refill x 3 months (until due for an office visit, Cr check, K check and Na check) Last qualifying visit: 01/11/2023 (with MOHIT MENON) Next scheduled visit: 11/08/2023 (with MOHIT MENON) Last ordered by MOHIT MENON: 11/03/2022 (356 days ago) QTY: 90, Refills: 3, Sig: take 1 tablet by mouth daily (unchanged) Cr: 0.99 mg/dL on 01/11/2023 Na: 138 mEq/L on 01/11/2023 K: 4.1 mEq/L on 01/11/2023 [facility] Embedded Refills, Reference: [id number], 10/25/2023 5:43:54 AM CDT, Pool: Refill Centralized Services - Primary Care ([id number]) * Denilson Darnell - 10/25/2023 5:43 AM CDT The following lab order(s) may be associated with the following Patient Result Comment (Entered by Mohit Menon MD at 01/13/2023 8:44 AM): BASIC METABOLIC PANEL Dear BrentResults - Kidney electrolytes normalMild anemiaOtherwise labs acceptableSushant MD Tonya 01/13/2023, 7:44 AM documented in this encounter Plan of Treatment Not on file documented as of this encounter Visit Diagnoses Diagnosis Hypertension, unspecified type (HRC) documented in this encounter Care Teams Director Of Consumer Marketing Relationship Specialty [place] [address] [place] [address] PCP - General Family Practice 07/14/22 documented as of this encounter
--- OUTSIDE RECORDS SUMMARY | 2023-11-10 06:11 | XMS_ITS | Encounter Summary ---
Author Organization [facility] Address [address] [facility] [place] [address] Care Team Providers Care Export Manager Name Role Phone Jennifer Alfaro PA-C Primary Care Provi corinna Artur Bernal MD Unavailable [phone] Mohit Castaneda MD Primary Care Provider [phone] Encounter Details Date Type Department Care Team (Late st Contact Info) Description 11/30/2020 Documentation Only INTERFACED REPORT Unknown, Provider Social History Tobacco Use Types Packs/Day Years Used Date Smoking Tobacco: Former Cigarettes Q uit: 03/31/2001 Smokeless Tobacco: Never Alcohol Use Standard Drinks/Week Comments Yes 0 (1 standard drink = 0.6 oz pur e alcohol) 5-6/ week PHQ-2 Answer Date Recorded PHQ-2 Score 1 03/07/2018 Sex and Gender Information Value Date Recorded Sex Assigned at Male 01/10/2021 6:32 PM BOOSTER STATION OPERATOR Gender Identity Male 01/10/2021 6:32 PM BOOSTER STATION OPERATOR Sexual Orientation Straight 01/10/2021 6: 32 PM BOOSTER STATION OPERATOR COVID-19 Exposure Response Date Recorded In the last month, have you been in contact with someone who was confirmed or suspected to have Coronavirus / COVID-19? No / Unsure 11/29/2020 9:29 PM CDT documented as of this encounter Plan of Treatment Not on file documented as of this encounter Visit Diagnoses Not on filedocumented in this encounter Care Teams Export Manager Relationship Specialty Start Date End Date Jennifer Alfaro PA-C PCP - General Physician Automobile Wrecker 06/24/15 08/24/21 [place] [address] [place], [place] [id number] PCP - General 08/25/21 Artur Bernal MD [address] [place], [place] [address] Assigned PCP 08/03/20 03/28/21 documented as of this encounter
--- OUTSIDE RECORDS SUMMARY | 2023-11-10 06:11 | XMS_ITS | Clinical Summary ---
[facility] Address [address] [facility] [place] [address] Care Team Providers Care Transformation Lead Name Role Phone Mohit Castaneda MD Primary Care Provider [phone] Source Comments You are receiving this document as you are listed as the primary care provider,follow-up provider, or the patient has been referred to you for consultation.This is in compliance with the Medicare andMedicaid EHR Incentive Program,which states Providers who transition their patient to another setting of careor provider of care or refers their patient to another provider of care shouldprovide summary care record for each transition of care or referral. [facility] Allergies No known active allergies Medications Medication Sig Dispensed Refills Start Date End Date Status acetaminophen 500 MG tablet Take 2 Tablets (1,000 mg) by mouth as needed. 08/09/2022 Active losartan-hydrochl orothiazide (HYZAAR) 50-12.5 MG tabletIndications :Hypertension, unspecified type (HRC) take 1 tablet by mouth daily 90 Tablet 10/25/2023 Active metFORMIN XR (GLUCOPHAGE XR) 500 MG 24 hour release tablet TAKE 1 TABLET(500 MG) BY MOUTH EVERY EVENING WITH A MEAL 90 Tablet 10/26/2023 Active losartan-hydrochl orothiazide (HYZAAR) 50-12.5 MG tabletIndications :Hypertension, unspecified type (HRC) TAKE 1 TABLET BY MOUTH DAILY 90 Tablet 3 11/03/2022 10/25/2023 Discontinued ibuprofen (MOTRIN) 200 MG tablet Take 1 Tablet (200 mg) by mouth. Take a total of 800 mg daily 08/09/2022 11/08/2023 Discontinued topiramate (TOPAMAX) 25 MG tablet 25 mg nightly x 1 week, 50 mg nightly 180 Tablet 3 12/06/2022 11/08/2023 Discontinued Phentermine HCl 37.5 MG capsuleIndication s:Morbid obesity (HRC) Take 1 Capsule (37.5 mg) by mouth daily. 90 Capsule 1 12/06/2022 11/08/2023 Discontinued metFORMIN XR (GLUCOPHAGE XR) 500 MG 24 hour release tablet TAKE 1 TABLET(500 MG) BY MOUTH EVERY EVENING WITH A MEAL 90 Tablet 07/29/2023 10/26/2023 Discontinued Active Problems Problem Noted Date Diagnosed Date Prediabetes 10/30/2021 Fatty liver 10/30/2021 Hypertension 09/22/2021 Alcohol dependence with other alcohol-induced di sorder 03/22/2018 Elevated liver enzymes 12/08/2017 Elevated blood pressure read ing without diagnosis of hypertension 08/13/2009 Morbid obesity 05/05/2005 Overview (10/02/2015): LW Onset: Encounters Date Type Department Care Team Description 11/09/[address] [phone] Mohit Castaneda MD Questions 11/08/2023 2:50 PM CDT Lab Visit Laboratory at [address] [address] Prediabetes; Preop general physical exam 11/08/2023 2:30 PM CDT Pre-Op Visit [address] [phone] Mohit Castaneda MD Preop general physical exam (Primary Dx); Chronic pain of right knee; Prediabetes 10/25/2023 Refill [facility] [id number] [place] [id number] Mohit Castaneda MD Refill (metFORMIN XR (GLUCOPHAGE XR) 500 MG 24 hour release tablet [Pharmacy Med Name: METFORMIN ER 500MG 24HR TABS]) 10/25/2023 Refill [facility] [address] [place] [address] Mohit Castaneda MD Refill (losartan-hydrochlor othiazide (HYZAAR) 50-12.5 MG tablet [Pharmacy Med Name: LOSARTAN/HCTZ 50/12.5MG TABLETS]) from Last 3 Months Immunizations Name Administration Dates Next Due Flu Vac (3+ yrs) 12/29/2020, 4,01/01/2013,2012 HepB Adult (Engerix-B, 20+ y rs, 3 dose series) 06/08/1996,05/07/1996 HepB Ped/Adol (0-18 yrs) 03/04/1997 Influenza (Flucelvax), Prese rv Free QIV 11/15/2022,12/07/2021,11/25/2019 Influenza IIV4 (Quadrivalent ) 0.5mL (97088) 11/09/2018,12/13/2017,11/28/2016,2015 Influenza, Unspecified Formulation 01/04/1996 Moderna Bivalent 12+ 12/07/2021 Moderna Monovalent 12+ 12/29/2020,06/16/2020, Pfizer COVID-19 12+ 11/15/2022 Td 05/07/1996 Tdap 03/23/2017 Family History Medical History Relation Name Comments Cancer Father Mauro Cancer, Prostate Father Mauro Diabetes Father Mauro Diabetes, Type I Father Mauro Heart Disease Father Mauro Hyperlipidemia Father Mauro Hypertension Father Mauro Obesity Father Mauro Obesity Mother Diabetes, Type I Maternal Grandfather Relation Name Status Comments Father Mauro Alive Mother Alive Brother Alive Maternal Grandfather Social History Tobacco Use Types Packs/Day Years [...] on file Sexual Orientation Not on file Last Filed Vital Signs Vital Sign Reading Time Taken Comments Blood Pressure 122/79 11/08/2023 2:40 PM CDT Pulse 85 11/08/2023 2:40 PM CDT Temperature 36 ??C (96.8 ??F) 11/05/2021 2:25 PM CDT Respiratory Rate 18 11/09/2018 9:33 AM CDT Oxygen Saturation 96% 09/22/2021 9:37 AM CDT Inhaled Oxygen Concentration - - Weight 163.3 kg (360 lb) 11/08/2023 2:40 PM CDT Height 177 cm (5' 9.69) 11/08/2023 2:40 PM CDT Body Mass Index 52.12 11/08/2023 2:40 PM CDT Plan of Treatment Health Maintenance Due Date Last Done Comments MTM Covered 1974 Pneumococcal (1 - PCV) 01/19/1980 HIV Screening (Preventive Services) 1990 HepB (3) 04/29/1997 03/04/1997, 05/29, 05/07/1996 FIT Colon Cancer Screening 2018 Adult Preventive Visit 11/10/2019 9, 05/07/1996, 07/21/1995 COVID-19 Vaccine ( season) 2023 11/15/2022, 12/07/2021, 12/29/2020, Additional history exists Influenza (#1) 2023 11/15/2022, 11/28, 12/29/2020, Additional history exists Zoster/Shingles (1 of 2) 01/19/2024 Prediabetes: HGBA1C 11/07/2024 11/08/2023, 09/21/2022, 08/25/2021 DTaP/Tdap/Td (2 - Tdap) 03/23/2027 03/23/2017, 05/07 Cholesterol 09/22/2027 09/21/2022, 10/02/2001 Hep C Screening (Preventive Services) Completed 10/09/2001 HepA Aged Out No longer eligi ble based on patient's age to complete this topic Hib Aged Out No longer eligi ble based on patient's age to complete this topic IPV (Polio) Aged Out No longer eligi ble based on patient's age to complete this topic MCV4 Aged Out No longer eligi ble based on patient's age to complete this topic Procedures Procedure Name Priority Date/Time Associated Diagnosis Comments COMPLETE BLOOD COUNT-W/DIFF Routine 11/08/2023 2:56 PM CDT Preop general physical exam CBC AND DIFFERENTIAL PANEL Routine 11/08/2023 2:56 PM CDT Preop general physical exam BASIC METABOLIC PANEL Routine 11/08/2023 2:56 PM CDT Preop general physical exam HGB A1C Routine 11/08/2023 2:56 PM CDT Prediabetes CHOLESTEROL, TOTAL AND HDL Routine 09/21/2022 10:28 AM CDT Lipid screening HEPATITIS C ANTIBODY, WITH REFLEX Routine 10/09/2001 8:36 AM CDT from Last 3 Months or Most Recently Relevant to Health Maintenance Results * (ABNORMAL) Complete Blood Count-W/Diff (11/08/2023 2:56 PM CDT) WBC 6.9 3.5 - 10.5 x10(9)/L 11/08/2023 [...] - 33.3 pg 11/08/2023 2:59 PM CDT [facility] MCHC 32.2 31.5 - 35.2 g/dL 11/08/2023 2:59 PM CDT [facility] RDW 13.0 11.9 - 15.5 % 11/08/2023 2:59 PM CDT [facility] Platelets 194 150 - 450 x10(9)/L 11/08/2023 2:59 PM CDT [facility] Neutrophil Absolute 3.9 1.7 - 7.0 10(9)/L 11/08/2023 2:59 PM CDT [facility] Lymphocyte Absolute 2.3 1.0 - 4.8 10(9)/L 11/08/2023 2:59 PM CDT [facility] Monocyte Absolute 0.5 0.2 - 0.9 10(9)/L 11/08/2023 2:59 PM CDT [facility] Eosinophil Absolute 0.2 0.0 - 0.5 10(9)/L 11/08/2023 2:59 PM CDT [facility] Basophil Absolute 0.0 0.0 - 0.3 10(9)/L 11/08/2023 2:59 PM CDT [facility] Immature Granulocyte % 0.1 0.0 - 0.5 % 11/08/2023 2:59 PM CDT [facility] Blood Venipuncture / Unknown 11/08/2023 2:56 PM CDT 11/08/2023 2:56 PM CDT Mohit Castaneda MD LAB_1 [facility] [address] [place] [address], [facility] * (ABNORMAL) BMP (11/08/2023 2:56 PM CDT) Sodium 139 136 - 145 mmol/L 11/08/2023 7:02 PM CDT [facility] Potassium 3.9 3.5 - 5.1 mmol/L 11/08/2023 7:02 PM CDT [facility] Chloride 103 98 - 109 mmol/L 11/08/2023 7:02 PM [facility] CO2 28 20 - 29 mmol/L 11/08/2023 7:02 PM [facility] Anion Gap 8 6 - 16 mmol/L 11/08/2023 7:02 PM [facility] Calcium 9.4 8.4 - 10.4 mg/dL 11/08/2023 7:02 PM [facility] BUN 19 7 - 26 mg/dL 11/08/2023 7:02 PM [facility] Creatinine 0.94 0.73 - 1.18 mg/dL 11/08/2023 7:02 PM [facility] Glucose 118(H) 70 - 100 mg/dL 11/08/2023 7:02 PM [facility] Comment:The given reference range is for the fasting state. Non-fasting reference range for glucose is 70 - 180 mg/dL. GFR, Estimated >60 >60 mL/min/1. 73m2 11/08/2023 7:02 PM [facility] Hours Fasting 0.1 8 - 12 Hours 11/08/2023 7:02 PM [facility] Blood Venipuncture / Unknown 11/08/2023 2:56 PM CDT 11/08/2023 2:56 PM CDT Mohit Castaneda MD LAB_1 [facility] [address] * (ABNORMAL) Hgb A1C (11/08/2023 2:56 PM CDT) Hemoglobin A1C 5.8(H) <=5.6 % 11/08/2023 7:28 PM [facility] Estimated Average Glucose (Calc) 120 < 117 mg/dL 11/08/2023 7:28 PM [facility] Comment:Estimated average gl ucose (eAG) converts A1c into glucose units (mg/dL) and estimates average glucose over the past approximately 3 months. The eAG reference interval (<117 mg/dL) corresponds to an A1c of <5.7%. Blood Venipuncture / Unknown 11/08/2023 2:56 PM CDT 11/08/2023 2:56 PM CDT Narrative [facility] - 11/08/2023 7:28 PM CDT For patients not previously diagnosed with diabetes: 5.7-6.4%: Increased risk for diabetes 6.5% and greater: Diagnostic for diabetes For patients diagnosed with diabetes: <8.0%: Goal of therapy for ages 18-75 Clinicians may recommend a higher or lower goal for specific individuals. Mohit Castaneda MD LAB_1 Performing Organization Address [facility] Co de Phone Number [facility] [address] * (ABNORMAL) Cholesterol, Total and HDL (09/21/2022 10:28 AM CDT) Cholesterol 190 0 - 199 mg/dL 09/21/2022 3:01 PM CDT [facility] HDL Cholesterol 35(L) >=40 mg/dL 09/21/2022 3:01 PM CDT [facility] Non HDL Chol, Calculated 155 <=159 mg/dL 09/21/2022 3:01 PM CDT [facility] Blood Venipuncture / Unknown 09/21/2022 10:28 AM CDT 09/21/2022 10:28 AM CDT Mohit Castaneda MD LAB_1 Performing Organization Address [facility] Co de Phone Number [facility] [address] [phone] * Hepatitis C Antibody, with Reflex (10/09/2001 8:36 AM CDT) Hepatitis C Antibody Non Reac Non Reac HP CONVERSION 10/09/2001 8:36 AM CDT Javi Palacios MD LAB_1 [facility] CONVERSION from Last 3 Months or Most Recently Relevant to Health Maintenance Care Teams Transformation Lead Relationship Specialty Start [place] [address] [place] [address] PCP - General Family Practice 07/14/22
--- OUTSIDE RECORDS SUMMARY | 2023-11-10 06:11 | XMS_ITS | Encounter Summary ---
Author Organization [facility] Address [address] [place] [address] Care Team Providers Care Public Relations Representative Name Role Phone Mohit Castaneda MD Primary Care Provider [phone] Encounter Details Date Type Department Care Team (Latest Contact Info) Description 08/12/1995 Orders Only Jonathan Cervantes MD Social History Tobacco Use Types Packs/Day Years Used Date Smoking Tobacco: Never Assessed Sex and Gender Information Value Date Recorded Sex Assigned at Not on file Gender Identity Not on file Sexual Orientation Not on file documented as of this encounter Plan of Treatment Not on file documented as of this encounter Visit Diagnoses Not on filedocumented in this encounter Care Teams Public Relations Representative Relationship Specialty [place] [address] [place] [address] PCP - General Family Practice 07/14/22 documented as of this encounter
--- OUTSIDE RECORDS SUMMARY | 2023-11-10 06:11 | XMS_ITS | Encounter Summary ---
Author Organization [facility] Address [address] [place] [address] Care Team Providers Care Program Checker Name Role Phone Mohit Castaneda MD Primary Care Provider [phone] Reason for Visit * Reason Comments Questions Encounter Details Date Type Department Care Team (Late st Contact Info) Description 11/09/2023 Telephone [facility] [address] [place] [address] [place] [address] [place] [address] Questions Social History Tobacco Use Types Packs/Day Years [...] as of this encounter Nursing Notes * Naila Alcantar - 11/09/2023 4:06 PM CDT Faxed pre-op to [facility] Contacted patient aware of being faxed * Zaid Canales - 11/09/2023 1:16 PM CDT Other Questions/Concerns/FYI Is this a symptom? No What is your question or concern? Wants a copy of the pre-op done on 11/08/23 sent over via fax #:[phone] Have you recently been seen for this? Yes: 11/08/23 Preferred communication method: Phone Call. Is it okay to leave a detailed message on your voicemail? Yes Is there anything else I can help you with today? No documented in this encounter Plan of Treatment Not on file documented as of this encounter Visit Diagnoses Not on filedocumented in this encounter Care Teams Program Checker Relationship Specialty [place] [address] [place] [address] PCP - General Family Practice 07/14/22 documented as of this encounter
--- OUTSIDE RECORDS SUMMARY | 2023-11-10 06:11 | XMS_ITS | Encounter Summary ---
Author Organization [facility] Address [address] [place] [address] Care Team Providers Care Channeling Machine Operator Name Role Phone Mohit Castaneda MD Primary Care Provider [phone] Encounter Details Date Type Department Care Team (Latest Contact Info) Description 07/31/1995 Orders Only Gladys Hardwick MD Social History Tobacco Use Types Packs/Day Years Used Date Smoking Tobacco: Never Assessed Sex and Gender Information Value Date Recorded Sex Assigned at Not on file Gender Identity Not on file Sexual Orientation Not on file documented as of this encounter Plan of Treatment Not on file documented as of this encounter Visit Diagnoses Not on filedocumented in this encounter Care Teams Channeling Machine Operator Relationship Specialty Start [place] [address] [place] [address] PCP - General Family Practice 07/14/22 documented as of this encounter
[2023-11-10] MEDS: SODIUM CHLORIDE 0.9 % (FLUSH) 10 ML SYRINGE IVF (06:30)
[2023-11-10] MEDS: LACTATED RINGERS 1000 ML 1,000 ML 100 ML IV (06:30)
[2023-11-10] MEDS: CEFAZOLIN 1 GM inj 3 GM IVP (07:20)
[2023-11-10] MEDS: BUPIVACAINE 0.25% 30 ML INJECTION (08:25)
--- NOTE | 2023-11-10 08:27 | P.ORPRC_ITS ---
Procedure Note Date of procedure: 11/10/23 Procedure: PREOPERATIVE DIAGNOSIS: Right total knee arthroplasty patellar clunk syndrome POSTOPERATIVE DIAGNOSIS: Right total knee arthroplasty patellar clunk syndrome NAME OF OPERATION: Right total knee arthroplasty arthroscopic debridement SURGEON: Laci Peterson MD COMPLIANCE REPRESENTATIVE DEALER: KIM Gupta ANESTHESIA: Spinal ESTIMATED BLOOD LOSS: 0 mL COMPLICATIONS: None SPECIMENS: None DRAINS: None PREOPERATIVE ANTIBIOTICS: Ancef 3 g INDICATIONS: The patient is a 48-year-old male with a history of right total knee arthroplasty patellar clunk syndrome. Operative intervention was recommended. The risks, benefits and expected outcomes were discussed in detail. These included but were not limited to: Infection, bleeding, injury to blood vessel or nerve, venous thromboembolism. All questions were answered to their satis faction. PROCEDURE: Spinal anesthesia was administered. The patient was placed supine on the operating room table. The right lower extremity was prepped and draped in the usual sterile fashion. The limb was exsanguinated with the Keon bandage. The pneumatic tourniquet was inflated to 300 mmHg. A standard anterolateral portal was established. The arthroscope was introduced. The working portal was established anteromedially. Diagnostic arthroscopy was performed with findings as follows: The patellar component is intact with circumferential scarring surrounding it. The femoral component is normal, the tibial polyethylene is normal. The scarring posterior to ther patellar tendon was debrided with the radiofrequency probe and shaver. A superomedial and superlateteral portal were placed. Then we aggressively debrided around the patellar component and posterior to the quads tendon with the shaver and radiofrequency probe. Arthroscopic instruments were removed, the portal sites were closed with a 3-0 nylon. Portals were injected with 0.25% Marcaine without epinephrine. A dry dressing was applied, the tourniquet was released. Sponge and needle counts were correct x 2. The patient tolerated the procedure well. There were no apparent complications. They were carefully transferred to the hospital bed and taken to the postanesthesia care unit in satisfactory condition. PLAN: The patient will be discharged to home. They may weightbear as tolerates. Range of motion will be unrestricted. They will follow up in the office in 2 weeks for a wound check and suture removal.
--- NOTE | 2023-11-10 08:41 | W.ANESCHARGE ---
Anesthesia Charges Start Date/Time Anesthesia Start Date: 11/10/23 Anesthesia Start Time: 07:13 Stop Date/Time Anesthesia Stop Date: 11/10/23 Anesthesia Stop Time: 08:42
[2023-11-10] MEDS: fentaNYL 100 MCG/2 ML inj 50 MCG IVP ×2 (09:07→09:15)
--- NOTE | 2023-11-10 09:11 | W.ANESCHARGE ---
Anesthesia Charges Start Date/Time Anesthesia Start Date: 11/10/23 Anesthesia Start Time: 07:13 Stop Date/Time Anesthesia Stop Date: 11/10/23 Anesthesia Stop Time: 08:42
[2023-11-10] MEDS: ACETAMINOPHEN 325 MG TABLET PO (09:49)
== END 2023-11-10 10:27 | disposition home or self-care (01) ==
PROVIDERS: PCP Family Medicine; Visit Provider Orthopaedic Surgery
PROC: (CPT 29870; principal; 2023-11-10 07:15)
DX: M25.861 Other specified joint disorders, right knee (principal); Z96.651 Presence of right artificial knee joint; I10 Essential (primary) hypertension; R73.03 Prediabetes; E66.01 Morbid (severe) obesity due to excess calories; Z68.43 Body mass index [BMI] 50.0-59.9, adult
CPT/HCPCS: 29877; 01400; A9270; J0665; J0690; J1100; J2250; J2405; J2704; J3010; J7120